=== PATIENT | female | born 1950 | race Caucasian/White ===

== ENCOUNTER 2024-03-14 15:19 | Outpatient (REF) | payer MEDICARE, MEDICAID, SELFPAY | END 2024-03-14 15:20 | disposition home or self-care (01) | LOC: CF 15:19 | DX: Z13.89 Encounter for screening for other disorder (principal) ==

== ENCOUNTER 2024-04-02 13:23 | Outpatient (AMB) | payer MEDICARE, MEDICAID, SELFPAY ==
[2024-04-02 13:30] VITALS: BP 122/68; PULSE 70; O2SAT 98; BMI 24.2
--- NOTE | 2024-04-02 13:30 | MHC.OFFVIS ---
Vital Signs 04/02/24 13:30 Height 5 ft 6 in Weight 149 lb 14.629 oz BMI 24.2 BP 122/68 Blood Pressure Location Lt brachial Position Sitting Pulse 70 Pulse Source Pulse Oximeter Pulse Oximetry (%) 98 Oxygen Delivery Method Room Air Intake Visit Reasons: Abnormal CT scan Ball Rolling Machine Operator Required: No Application Helper: Application Helper offered & declined Accompanied by: Self / Same As Patient Allergies No Known Allergies Allergy (Verified 04/02/24 13:35) Medication List - Last Reconciled 04/02/24 by Kassidy Saldivar LPN duloxetine (Cymbalta) 60 mg PO DAILY meloxicam 15 mg PO DAILY HPI Comments Details: The patient is here for a pulmonary evaluation. The patient is a 73 year woman presenting with a normal CT scan of the chest. Apparently for the last year she has been noticing increasing shortness of breath. Going up a flight of stairs or going up an incline. She is an avid walker and sometimes she goes hiking. She has been noticing that her level exercise has been less. She also developed a cough which is nonproductive in nature. Because of the ongoing symptoms in because the patient's mother and brother both had lung cancer she request a chest x-ray. Her x-ray was abnormal with some reticular changes and some ground-glass opacities. Therefore the recommendation was to get a repeat x-ray in 3 months. I which time the patient did go to [facility] for vacation and she started developing worsening shortness of breath then. Therefore when she got back from her trip she ended up getting the x-ray demonstrating still the persistent changes and therefore the patient underwent a CT of the chest with IV contrast. I did personally review the CAT scan with her. The patient does have peripheral base reticular changes bilaterally but left more than right. In the lingula there is some areas of ground-glass opacities and ill-defined fluffy opacity that area. For the most part though is primarily reticular primarily in the bases. The question of UIP brought was brought up by the radiologist. The degree is [id number]. During the visit we did go for a walking oximetry the patient maintain a pulse ox of 95% with activity and the heart rate was also stable. She does have episodes of palpitations. And she will be seen a carpenter prototype. In the meantime she does have an elevated daytime drowsiness score and she did have a sleep study and she was found to have severe sleep apnea. She did recently start CPAP therapy. As far as exposures the patient does have some minimal exposure to different homes and houses and she has been exposed to mold. Denies any smoking although secondhand smoke may have played a role some point in her life. Denies any exposure to any inorganic dust or fumes or toxins otherwise. As far as any relevant issues she has been told about having arthritis and she also has Raynaud's. But no significant connective tissue disease in the family. Denies any rashes. Will go ahead and request blood work to see if there is any etiologies that could explain her underlying interstitial lung disease. No need for considering biopsy at this time. Her PFTs were done which we did review which demonstrated decreased FEV1 to FVC ratio of 72% but otherwise her lung volumes and diffusing capacity were normal. Will plan to repeat the spirometry during the next visit. Hold off on any therapy at this time. If there is any progression of disease will consider Ofev. [facility] Medical History (Updated 04/02/24 @ 22:42 by John Murphy MD) ARYAN on CPAP ILD (interstitial lung disease) Social History (Updated 04/02/24 @ 13:39 by Kassidy Saldivar LPN) Years Smoked: Very occasional smoker. 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) Neuro Reports no additional complaints Royce/Lymph Reports no additional complaints Aller/Immun Denies wheezing Physical Exam Vital Signs: Last Vital Signs Pulse 70 04/02/24 13:30 BP 122/68 04/02/24 13:30 Pulse Ox 98 04/02/24 13:30 Oxygen Delivery Method Room Air 04/02/24 13:30 BMI result Body Mass Index 24.2 Const General: comfortable HEENT Head: Yes normocephalic Neck Neck: Yes supple Chest Chest palpation & inspection: normal inspection of the chest Resp Effort & Inspection: normal respiratory effort Auscultation: rales (end inspiration) and diminished lung sounds Cardio Heart sounds: S1 normal heart sound present and S2 normal heart sound present GI Palpation (GI): Soft to palpation Skin General skin exam: no rashes or lesions noted Extrem General: Yes no clubbing, cyanosis or edema Results Reviewed Results Reviewed: persnonally reviewed CT chest with bibasilar reticular changes and mild honeycombing Assessment & Plan Assessment & Plan (1) ILD (interstitial lung disease): Code(s): J84.9 - Interstitial pulmonary disease, unspecified Category: Medical (2) ARYAN on CPAP: Code(s): G47.33 - Obstructive sleep apnea (adult) (pediatric) Category: Medical Plan The findings of the CT chest are demonstrating early process of ILD. The distribution and the reticular nature is suspicious for Usual interstitial pneumonia. We will try to identify any precipitating conditions: No medication of concern. No pneumoconiosis. No radiation. Need to assess for CTDs. Need to assess to this ILD is progressive. Holding off on meds at this time. Does have a compression fracture so steroids maybe difficult to tolerate, but,no significant pneumonitis (?lingula) noted. 6MWT was reassuring. REC: Bloodwork repeat spirometry continue APAP should sleep with HOB elevated Will request barium swallow F/U 6-8 weeks Orders: Orders Venous Blood Gas Today J84.9 - Interstitial pulmonary disease, unspecified MECHELLE Reflex Titer and Pattern Today J84.9 - Interstitial pulmonary disease, unspecified Cyclic Citrullinated Peptide Today J84.9 - Interstitial pulmonary disease, unspecified Complete Blood Count Auto Diff Today J84.9 - Interstitial pulmonary disease, unspecified Anti DNA DS Antibody Today J84.9 - Interstitial pulmonary disease, unspecified ANCA Vasculitides Today J84.9 - Interstitial pulmonary disease, unspecified Erythrocyte Sedimentation Rate Today J84.9 - Interstitial pulmonary disease, unspecified Hypersensitive Pneumonitis Prf Today J84.9 - Interstitial pulmonary disease, unspecified, R91.8 - Other nonspecific abnormal finding of lung field Scleroderma 70 Antibody Today J84.9 - Interstitial pulmonary disease, unspecified Sjogren's Antibodies Today J84.9 - Interstitial pulmonary disease, unspecified FL barium swallow Today J84.9 - Interstitial pulmonary disease, unspecified, K21.9 - Gastro-esophageal reflux disease without esophagitis Coding Level of Care Code New Pt Level 5 (11858) Diagnoses ILD (interstitial lung disease) J84.9 ARYAN on CPAP G47.33 Time Spent (min) 60
== END 2024-04-02 14:21 | disposition home or self-care (01) ==
PROVIDERS: PCP Family Medicine; Referring Provider Family Medicine; Visit Provider Hospitalist
DX: J84.9 Interstitial pulmonary disease, unspecified (principal); G47.33 Obstructive sleep apnea (adult) (pediatric)
CPT/HCPCS: 99205

== ENCOUNTER 2024-04-02 14:22 | Outpatient (REF) | payer MEDICARE, SELFPAY ==
[2024-04-02 14:49] LABS: MANUAL DIFF FLAG NO
[2024-04-02 15:06] LABS: Basophils Absolute Auto 0.1 X10*3/uL (0.0-0.2); Basophils Percent Auto 0.9 % (0-2); Eosinophils Absolute Auto 0.3 X10*3/uL (0.0-0.4); Eosinophils Percent Auto 5.6 % (0-4); Hematocrit 40.7 % (37.0-47.0); Hemoglobin 14.2 g/dl (12.0-16.0); Imm Gran Abs Auto 0.02 X10*3/uL (0.00-0.03); Imm Gran Pct Auto 0.4 % (0.0-0.4); Lymphocytes Absolute Auto 1.2 X10*3/uL (1.2-4.9); Lymphocytes Percent Auto 22.7 % (20-40); Mean Corpuscular HGB Conc 34.9 g/dl (31.0-35.0); Mean Corpuscular Hemoglobin 33.2 pg (27.0-33.0); Mean Corpuscular Volume 95.1 fL (80.0-98.0); Mean Platelet Volume 8.9 fL (9.4-12.3); Monocytes Absolute Auto 0.4 X10*3/uL (0.1-1.2); Monocytes Percent Auto 7.7 % (2-11); Neutrophils Absolute Auto 3.4 x10*3/uL (2.0-8.3); Neutrophils Percent Auto 62.7 % (45-73); Platelet Count 239 X10*3/uL (160-400); Red Blood Count 4.28 X10*6/uL (4.20-5.50); Red Cell Distribution Width 11.9 % (11.0-16.0); White Blood Count 5.3 X10*3/uL (4.8-10.8)
[2024-04-02 15:09] LABS: VBG Base Excess 4.3 mmol/L; VBG pCO2 44 mmHg; VBG pH 7.42 (7.32-7.43); VBG pO2 37 mmHg
[2024-04-02 15:10] LABS: VBG HCO3 29 mmol/L (22-26)
[2024-04-02 15:12] LABS: Venous Blood Gas Refer to POC result
[2024-04-02 15:51] LABS: Erythrocyte Sedimentation Rate 9 MM/HR (0-20)
[2024-04-03 18:13] LABS: Anti DNA DS Antibody <1 IU/mL; Antibody to SS-A Antigen <1.0 NEG AI (<1.0 NEG); Antibody to SS-B Antigen <1.0 NEG AI (<1.0 NEG); Myeloperoxidase Antibody <1.0 AI; Proteinase 3 PR3 Antibodies <1.0 AI; Scleroderma 70 Antibody <1.0 NEG AI (<1.0 NEG)
[2024-04-03 19:53] LABS: Cyclic Citrullinated Peptide <16 UNITS
[2024-04-05 11:42] LABS: Anti Nuclear Antibody Screen NEGATIVE (NEGATIVE)
[2024-04-12 12:43] LABS: Asperg fumigatus Precip Abs NEGATIVE (NEGATIVE); Micropoly faeni Abs NEGATIVE (NEGATIVE); Pigeon serum Abs NEGATIVE (NEGATIVE); Saccharo pora viridis Abs NEGATIVE (NEGATIVE); Thermo candidus Abs NEGATIVE (NEGATIVE); Thermoa vulgaris #1 NEGATIVE (NEGATIVE)
== END 2024-04-02 14:23 | disposition home or self-care (01) ==
LOC: HO.LAB 14:22
PROVIDERS: PCP Family Medicine; Visit Provider Hospitalist
DX: J84.9 Interstitial pulmonary disease, unspecified (principal); R91.8 Other nonspecific abnormal finding of lung field; G47.33 Obstructive sleep apnea (adult) (pediatric)
CPT/HCPCS: 36415; 82803; 85025; 85652; 86021; 86038; 86200; 86225; 86235; 86331; 86606; 86609; 99202

== ENCOUNTER 2024-07-02 08:05 | Outpatient (REF) | payer MEDICARE, SELFPAY | END 2024-07-02 08:06 | disposition home or self-care (01) | LOC: HO.XRAY 08:05 | PROVIDERS: PCP Family Medicine; Visit Provider Hospitalist | DX: K21.9 Gastro-esophageal reflux disease without esophagitis (principal); J84.9 Interstitial pulmonary disease, unspecified | CPT/HCPCS: 74220 ==

== ENCOUNTER → 2024-07-02 08:08 | Outpatient (BNV) | payer MEDICARE, SELFPAY | PROVIDERS: PCP Family Medicine; Visit Provider Radiology Diagnostic Radiology | DX: K21.9 Gastro-esophageal reflux disease without esophagitis (principal) | CPT/HCPCS: 74240 ==

== ENCOUNTER 2024-07-06 12:51 | Outpatient (AMB) | payer MEDICARE, MEDICAID, SELFPAY ==
[2024-07-06 13:09] VITALS: BP 120/82; PULSE 57; O2SAT 99; BMI 24.4
--- NOTE | 2024-07-06 13:09 | A.OFFVIS_ITS ---
Vital Signs 3 07/06/24 13:09 Height 5 ft 6 in Weight 151 lb 0.266 oz BMI 24.4 BP 120/82 Blood Pressure Location Rt brachial Position Sitting Pulse 57 Pulse Source Pulse Oximeter Pulse Oximetry (%) 99 Oxygen Delivery Method Room Air Intake Visit Reasons: ILD/Same Day Aleksander Allergies No Known Allergies Allergy (Verified 07/06/24 13:12) HPI Comments Details: The patient is a 74 year woman presenting with a normal CT scan of the chest. Apparently for the last year she has been noticing increasing shortness of breath. Going up a flight of stairs or going up an incline. She is an avid walker and sometimes she goes hiking. She has been noticing that her level exercise has been less. She also developed a cough which is nonproductive in nature. Because of the ongoing symptoms in because the patient's mother and brother both had lung cancer she request a chest x-ray. Her x-ray was abnormal with some reticular changes and some ground-glass opacities. Therefore the recommendation was to get a repeat x-ray in 3 months. I which time the patient did go to [facility] for vacation and she started developing worsening shortness of breath then. Therefore when she got back from her trip she ended up getting the x-ray demonstrating still the persistent changes and therefore the patient underwent a CT of the chest with IV contrast. I did personally review the CAT scan with her. The patient does have peripheral base reticular changes bilaterally but left more than right. In the lingula there is some areas of ground-glass opacities and ill-defined fluffy opacity that area. For the most part though is primarily reticular primarily in the bases. The question of UIP brought was brought up by the radiologist. The degree is [id number]. During the visit we did go for a walking oximetry the patient maintain a pulse ox of 95% with activity and the heart rate was also stable. She does have episodes of palpitations. And she will be seen a sleeve presser operator. In the meantime she does have an elevated daytime drowsiness score and she did have a sleep study and she was found to have severe sleep apnea. She did recently start CPAP therapy. As far as exposures the patient does have some minimal exposure to different homes and houses and she has been exposed to mold. Denies any smoking although secondhand smoke may have played a role some point in her life. Denies any exposure to any inorganic dust or fumes or toxins otherwise. As far as any relevant issues she has been told about having arthritis and she also has Raynaud's. But no significant connective tissue disease in the family. Denies any rashes. Will go ahead and request blood work to see if there is any etiologies that could explain her underlying interstitial lung disease. No need for considering biopsy at this time. Her PFTs were done which we did review which demonstrated decreased FEV1 to FVC ratio of 72% but otherwise her lung volumes and diffusing capacity were normal. Will plan to repeat the spirometry during the next visit. Hold off on any therapy at this time. If there is any progression of disease will consider Ofev. 07/06/2024 the patient is here for pulmonary follow-up visit. Overall she is doing okay. She still has episodes of tachycardia palpitations when she stands up. Otherwise denies any worsening shortness of breath or cough. She did undergo a barium swallow demonstrating no evidence of hiatal hernia reflux. She also did undergo blood work including connective tissue disease workup and hypersensitivity panel which were all negative. All reassuring. We again reviewed her CT scan from 09/10/2023 and also again from 02/10/2024 demonstrating the peripheral nature of the reticular changes and honeycombing. We did talk about the differential idiopathic parenchymal lung diseases. Her last PFTs from the summer and we had her repeating spirometry today. It appears that her FVC and FEV1 are both normal although her FEV1 to FVC ratio 70%. She still has some symptoms of dyspnea when she exercises. [id number] severity and also some shortness of breath when she rises. Therefore, have her start Breo once a day. She will rinse her mouth well. The patient does have a appointment in [place] scheduled to have this evaluated as well. I did recommend she can push her appointment to the summer so we can see if there is indeed any evidence of progression. For now though is reassuring that we see that her disease state is stable. [facility] Medical History (Updated 07/09/24 @ 13:22 by John Murphy MD) COPD (chronic obstructive pulmonary disease) Dyspnea ARYAN on CPAP ILD (interstitial lung disease) Social History Years Smoked: Very occasional smoker. 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) Neuro Reports no additional complaints Royce/Lymph Reports no additional complaints Aller/Immun Denies wheezing Physical Exam Vital Signs: Last Vital Signs Pulse 57 07/06/24 13:09 BP 120/82 07/06/24 13:09 Pulse Ox 99 07/06/24 13:09 Oxygen Delivery Method Room Air 07/06/24 13:09 BMI result Body Mass Index 24.4 Const General: comfortable HEENT Head: Yes normocephalic Neck Neck: Yes supple Chest Chest palpation & inspection: normal inspection of the chest Resp Effort & Inspection: normal respiratory effort Auscultation: rales (end inspiration) and diminished lung sounds Cardio Heart sounds: S1 normal heart sound present and S2 normal heart sound present GI Palpation (GI): Soft to palpation Skin General skin exam: no rashes or lesions noted Extrem General: Yes no clubbing, cyanosis or edema Office Procedures Flu Questionnaire Does the patient have a severe egg allergy?: No Does the patient have severe life threatening allergies?: No Does the patient have a fever or illness today?: No Has the patient ever had Guillain-Lansing Syndrome?: No Has the patient ever had any past reaction to a flu shot?: No Immunizations Fluarix Triv [id number] (PF) 45 mcg (15 mcg x 3)/0.5 mL IM syringe Performing Provider: John Murphy MD Performing Location: [facility] Administered by: Kassidy Saldivar LPN on 07/06/24 14:08 2 Dose Route Admin Location Dispensed Lot Number Expiration Date NDC Hat Forming Machine Operator 0.5 mL IM Left Deltoid 0.5 mL [id number] 11/19/24 [id number] [employer] 2 VIS Given Date VIS Provided VIS Publication Date 07/06/24 Single Vaccine 20 Eligibility Eligibility Date Funding Source Not [facility] Eligible 07/06/24 Private Results Reviewed Results Reviewed: Assessment & Plan Assessment & Plan (1) ILD (interstitial lung disease): Code(s): J84.9 - Interstitial pulmonary disease, unspecified Category: Medical (2) ARYAN on CPAP: Code(s): G47.33 - Obstructive sleep apnea (adult) (pediatric) Category: Medical (3) Dyspnea: Code(s): R06.00 - Dyspnea, unspecified Category: Medical Qualifiers: Dyspnea type: dyspnea on exertion Qualified Code(s): R06.09 - Other forms of dyspnea (4) COPD (chronic obstructive pulmonary disease): Comment: based on pre bronchodilator numbers. Could potentially be reversible. Although, not responsive to bronchodilators on her initial PFTs from 11/2023 Code(s): J44.9 - Chronic obstructive pulmonary disease, unspecified Category: Medical Qualifiers: COPD type: chronic bronchitis Chronic bronchitis type: simple Q ualified Code(s): J41.0 - Simple chronic bronchitis Plan The findings of the CT chest are demonstrating early process of ILD. The distribution and the reticular nature is suspicious for Usual interstitial pneumonia. We will try to identify any precipitating conditions: No medication of concern. No pneumoconiosis. No radiation. No evidence of CTDs. Need to continue to assess if the ILD is progressive. Holding off on meds at this time. Does have a compression fracture so steroids maybe difficult to tolerate REC: Start Breo daily continue APAP should sleep with HOB elevated Will request barium swallow-normal Will have a second opinion in [place] soon. I encouraged her to postpond appt till October/November to assess her response to inhaler therapy and to be able to get a formal PFT and imaging study then. F/U 6-8 months Orders: Orders 2 Influenza [id number] Immunization 07/06/24 Z23 - Encounter for immunization Medications: New 2 fluticasone furoate-vilanterol 100-25 mcg/dose (Breo Ellipta) 1 inh inhalation DAILY 30 days 60 ea 11RF Coding Level of Care Code Est Pt Level 5 (69593) Diagnoses ILD (interstitial lung disease) J84.9 ARYAN on CPAP G47.33 Dyspnea on exertion R06.09 Dyspnea type: dyspnea on exertion Simple chronic bronchitis J41.0 COPD type: chronic bronchitis Chronic bronchitis type: simple Time Spent (min) 60
--- OUTSIDE RECORDS SUMMARY | 2024-07-06 13:14 | XMS_ITS | Encounter Summary ---
Author Organization [employer] Address [address] [facility] [address] [place] [address] Care Team Providers Care Grades 9 Thru 12 Visiting Teacher Name Role Phone Tracey Lovett DO Primary Care Provider [phone] Olga Guillen Unavailable Unavailable Encounter Details Date Type Department Care Team (Late st Contact Info) Description 04/07/[address] [facility] MEDICAL [address] [place] [address] Provider, MD Maria Fernanda Social History Tobacco Use Types Packs/Day Years Used Date Smoking Tobacco: Former Cigarettes 0.3 45 1 967 - 2011 Passive Smoke Exposure: Past Smokeless Tobacco: Never Alcohol Use Standard Drinks/Week Comments Yes 0 (1 standard drink = 0.6 oz pur e alcohol) Alcohol Answer Date Recorded How often do you have a drink containing alcohol ? 0 05/27/2023 How many drinks containing a lcohol do you have on a typical day when you are drinking? 0 05/27/2023 How often do you have six or more drinks on one occasion? 0 05/27/2023 Depression Answer Date Recorded Patient Health Questionnaire-9 Score 12 08/02/2023 Patient Health Questionnaire-9 Score 12 08/02/2023 Last PHQ-9: Questionnaire Data Not on file 0 08/02/2023 Housing Stability Answer Date Recorded What is your housing situation today? I have pricillakendra agustin 05/27/[address] you li ve. Do you have problems with any of the following? None of the above 05/27/2023 Food Insecurity Answer Date Recorded Within the past 12 months, y ou worried that your food would run out before you got money to buy more: Never True 05/27/2023 Within the past 12 months,th e food you bought just didn't last and you didn't have enough money to get more: Never True 09/2023 Transportation Answer Date Recorded In the past 12 months, has l ack of transportation kept you from medical appts, meetings, work or from getting things needed for daily living? No 05/27/2023 Intimate Partner Violence Answer Date R ecorded Within the last year, have y ou been afraid of your partner or ex-partner? 2 05/27/2023 Within the last year, have y ou been humiliated or emotionally abused in other ways by your partner or ex-partner? 2 Within the last year, have y ou been kicked, hit, slapped, or otherwise physically hurt by your partner or ex-partner? 2 05/27/2023 Within the last year, have y ou been raped or forced to have any kind of sexual activity by your partner or ex-partner? 2 05/27/2023 Utilities Answer Date Recorded In the past 12 months, has t he electric, gas, oil or water company threatened to shut off services in your home? No 05/27/2023 Depression Answer Date Recorded Patient Health Questionnaire-2 Score 2 09/30/2023 Internet Access Answer Date Recorded Internet Access Q1 Yes 03/06/2024 Internet Access Q2 I do not want or need it 02/20 Education Answer Date Recorded What is the highest level of school you have completed or the highest degree you have received? Bachelor's degree (e.g., BA, AB, BS) 03/06/2024 Comments No Sex and Gender Information Value Date Recorded Sex Assigned at Female 07/07/2022 8:02 AM EST Legal Sex Female 5:35 PM EDT Gender Identity Female 07/07/2022 8:02 AM EST Sexual Orientation Straight 07/07/2022 8: 02 AM EST Occupation Industry Job Start Date Job End Date Retired Not on file Not on file Not on file documented as of this encounter Plan of Treatment Upcoming Encounters Date Type Department Care Team (Late st Contact Info) Description 12/06/2024 11:00 AM EDT Office Visit [facility] [address] [place] [address] Avani Martinez documented as of this encounter Procedures Procedure Name Priority Date/Time Associated Diagnosis Comments SJOGREN'S ANTIBODIES (SS-A,SS-B) Routine 04/02/2024 3:15 PM EST CYCLIC CITRULLINATED PEPTIDE (CCP) AB (IGG) Routine 04/02/2024 3:15 PM EST documented in this encounter Results * Cyclic Citrullinated Peptide (CCP) Antibody (IgG) (04/02/2024 3:15 PM EST) Blood Venous blood specimen / Unknown us Historical Provider MD LAB BLOOD ORDERABLES María l Result * Sjogren's Antibodies (SS-A,SS-B) (04/02/2024 3:15 PM EST) us Historical Provider MD LAB BLOOD ORDERABLES María l Result documented in this encounter Visit Diagnoses Not on filedocumented in this encounter Additional Health Concerns Assessment Noted Time PHQ-9 Depression Total Score: 12 024 10:00 AM EDT documented as of this encounter Care Teams Grades 9 Thru 12 Visiting Teacher Relationship Specialty Start Date End Date Tracey Lovett DO [address] [place] [id number] PCP - General Family Medicine 02/16/24 Olga Guillen Health Navigator 02/24/24 documented as of this encounter
--- OUTSIDE RECORDS SUMMARY | 2024-07-06 13:14 | XMS_ITS | Encounter Summary ---
Author Organization [employer] Address [address] [facility] 7t [place] [address] Care Team Providers Care Monument Mason Name Role Phone Tracey Lovett DO Primary Care Provider [phone] Olga Guillen Unavailable Unavailable Encounter Details Date Type Department Care Team (Late st Contact Info) Description 07/02/2024 Orders Only [facility] [address] [place] [address] Tracey Lovett DO [address] [place] [address] Social History Tobacco Use Types Packs/Day Years [...] is your housing situation today? I have pricilla agustin 05/27/[address] you [...] Description 12/06/2024 11:00 AM EDT Office Visit [facility] DENTAL [address] [place] [address] Avani Martinez documented as of this encounter Procedures Procedure Name Priority Date/Time Associated Diagnosis Comments FL ESOPHAGUS BARIUM SWALLOW Routine 07/02/2024 2:22 PM EST documented in this encounter Results * FL Esophagus Barium Swallow (07/02/2024 2:22 PM EST) Anatomical Region Laterality Modality Head, Neck Radiographic Nan ging Tracey Lovett DO IMG FLUOROSCOPY PROCEDURES Fin al Result documented in this encounter Visit Diagnoses Not on filedocumented in this encounter Additional Health Concerns Assessment Noted Time PHQ-9 Depression Total Score: 12 024 10:00 AM EDT documented as of this encounter Care Teams Monument Mason Relationship Specialty Start Date End Date Tracey Lovett DO [address] [place] [address] PCP - General Family Medicine 02/16/24 Olga Guillen Health Navigator 02/24/24 documented as of this encounter
--- OUTSIDE RECORDS SUMMARY | 2024-07-06 13:14 | XMS_ITS | Encounter Summary ---
Author Organization [employer] Address [address] [place] [address] Care Team Providers Care Senior Front End Developer Name Role Phone Yuly Norwood Unassigned Primary Care Provider Suzan Atkins MD Primary Care Provider [phone] Tamia Reid Primary Care Provider [phone] Tracey Lovett DO Primary Care Provider Olga Guillen Unavailable Unavailable Encounter Details Date Type Department Care Team (Latest Contact Info) Description 08/31/2021 Abstract [facility] Dental, Provider, DDS Social History Tobacco Use Types Packs/Day Years Used Date Smoking Tobacco: Never Assessed Comments Unknown Sex and Gender Information Value Date Recorded Sex Assigned at Female 07/07/2022 8:02 AM EST Legal Sex Female 5:35 PM EDT Gender Identity Female 07/07/2022 8:02 AM EST Sexual Orientation Straight 07/07/2022 8: 02 AM EST documented as of this encounter Plan of Treatment Upcoming Encounters Date Type Department Care Team (Late st Contact Info) Description 12/06/2024 11:00 AM EDT Office Visit [facility] D[facility]AL [address] [place] [address] Avani Martinez documented as of this encounter Visit Diagnoses Not on filedocumented in this encounter Care Teams Senior Front End Developer Relationship Specialty Start Date End Date PcpYuly Unassigned PCP - General Family Medicine 09/20/22 01/18/23 Suzan Block MD [address] [place] [address] PCP - General Internal Medicine 01/19/23 11/13/23 Tamia Reid FNP [address] [place] [address] PCP - General Family Medicine 11/14/23 02/15/24 Tracey Lovett DO [address] [place] [address] PCP - General Family Medicine 02/16/24 Olga Guillen Health Navigator 02/24/24 documented as of this encounter
--- OUTSIDE RECORDS SUMMARY | 2024-07-06 13:14 | XMS_ITS | Encounter Summary ---
Author Organization [employer] Address [address] [facility] 7t [place] [address] Care Team Providers Care Bath Steward Name Role Phone Suzan Block MD Primary Care Provider [phone] Tamia Reid Primary Care Provider [phone] Tracey Lovett DO Primary Care Provider [phone] Olga Guillen Unavailable Unavailable Encounter Details Date Type Department Care Team (Late st Contact Info) Description 06/20/2023 Orders Only [facility] [address] [place] [address] Dilma Szymanski MD [address] [place] [address] Palpitations Social History Tobacco Use Types Packs/Day Years Used Date Smoking Tobacco: Former Cigarettes Passive Smoke Exposure: Past Smokeless Tobacco: Never [...] more drinks on one occasion? 0 05/27/2023 Housing Stability Answer Date Recorded What is [...] Date Recorded Patient Health Questionnaire-2 Score 2 05/27/2023 Comments Unknown Sex and Gender Information Value [...] Description 12/06/2024 11:00 AM EDT Office Visit [facility] DENTAL [address] [place] [address] Avani Martinez documented as of this encounter Procedures Procedure Name Priority Date/Time Associated Diagnosis Comments TRANSTHORACIC ECHO (TTE) COMPLETE Routine 024 Palpitations documented in this encounter Results * Transthoracic Echo (TTE) Complete (06/20/2023) Dilma Szymanski MD CV ECHO PROCEDURES Final Result documented in this encounter Visit Diagnoses Diagnosis Palpitations documented in this encounter Care Teams Bath Steward Relationship Specialty Start Date End Date Suzan Block MD [address] [place] [address] PCP - General Internal Medicine 01/19/23 11/13/23 Tamia Reid FNP [address] [place] [address] PCP - General Family Medicine 11/14/23 02/15/24 Tracey Lovett DO [address] [place] [address] PCP - General Family Medicine 02/16/24 Olga Guillen Health Navigator 02/24/24 documented as of this encounter
--- OUTSIDE RECORDS SUMMARY | 2024-07-06 13:14 | XMS_ITS | Encounter Summary ---
Author Organization [employer] Address 75 [facility] 7t [place] [address] Care Team Providers Care Agricultural Equipment Mechanic Name Role Phone Suzan Block MD Primary Care Provider [phone] Tamia Reid Primary Care Provider [phone] Tracey Lovett DO Primary Care Provider [phone] Olga Guillen Unavailable Unavailable Encounter Details Date Type Department Care Team (Late st Contact Info) Description 08/25/2023 Orders Only [facility] [address] [place] [address] Tamia Reid FNP [address] [place] [address] Snoring Social History Tobacco Use Types Packs/Day Years [...] Answer Date Recorded Patient Health Questionnaire-2 Score 1 08/02/2023 Comments Unknown Sex and Gender Information Value [...] Description 12/06/2024 11:00 AM EDT Office Visit [place] [facility] DENTAL [address] [place] [address] Avani Martinez documented as of this encounter Procedures Procedure Name Priority Date/Time Associated Diagnosis Comments AMB REFERRAL TO SLEEP MEDICINE Routine 08/18/2023 Snoring documented in this encounter Results * Referral to Sleep Medicine (08/18/2023) Tamia BOYD OUTPATIENT REFERRAL ORDERABLES F inal Result documented in this encounter Visit Diagnoses Diagnosis Snoring Other dyspnea and respiratory abnormality documented in this encounter Additional Health Concerns Assessment Noted Time PHQ-9 Depression Total Score: 12 024 10:00 AM EDT documented as of this encounter Care Teams Agricultural Equipment Mechanic Relationship Specialty Start Date End Date Suzan Block MD [address] [place] [address] PCP - General Internal Medicine 01/19/23 11/13/23 Tamia Reid FNP [address] [place] [address] PCP - General Family Medicine 11/14/23 02/15/24 rTacey Lovett DO [address] [place] [address] PCP - General Family Medicine 02/16/24 Olga Guillen Health Navigator 02/24/24 documented as of this encounter
--- OUTSIDE RECORDS SUMMARY | 2024-07-06 13:14 | XMS_ITS | Encounter Summary ---
Author Organization [employer] Address [address] [facility] 7t [place] [address] Care Team Providers Care Textile Worker Name Role Phone Tamia Reid OLIVER Primary Care Provider [phone] Tracey Lovett DO Primary Care Provider [phone] Olga Guillen Unavailable Unavailable Encounter Details Date Type Department Care Team (Late st Contact Info) Description 01/10/2024 Orders Only [facility] MED[facility] [address] [place] [address] Janina Catherine FNP Social History Tobacco Use Types Packs/Day Years Used Date Smoking Tobacco: Former Cigarettes 0.3 45 1 967 - 2012 Passive Smoke Exposure: Past Smokeless Tobacco: Never [...] the past 12 months, has t he [employer], gas, oil or water company threatened to shut off services in your home? No 05/27/2023 Depression Answer Date Recorded Patient Health Questionnaire-2 Score 2 09/30/2023 Comments Unknown Sex and Gender Information Value [...] Description 12/06/2024 11:00 AM EDT Office Visit [place] [facility] D[facility] [address] [place] [address] Avani Martinez documented as of this encounter Visit Diagnoses Not on filedocumented in this encounter Additional Health Concerns Assessment Noted Time PHQ-9 Depression Total Score: 12 024 10:00 AM EDT documented as of this encounter Care Teams Textile Worker Relationship Specialty Start Date End Date Tamia Reid FNP [address] [place] [address] PCP - General Family Medicine 11/14/23 02/15/24 Tracey Lovett DO [address] [place] [address] PCP - General Family Medicine 02/16/24 Olga Guillen Health Navigator 02/24/24 documented as of this encounter
--- OUTSIDE RECORDS SUMMARY | 2024-07-06 13:14 | XMS_ITS | Encounter Summary ---
Author Organization [employer] Address [address] [place] [address] Care Team Providers Care Supervisor Sanding Name Role Phone Yuly Norwood Unassigned Primary Care Provider Suzan Atkins MD Primary Care Provider [phone] Tamia Reid Primary Care Provider [phone] Tracey Lovett DO Primary Care Provider [phone] Olga Guillen Unavailable Unavailable Encounter Details Date Type Department Care Team (Latest Contact Info) Description 02/25/2021 Abstract [facility] Dental, Provider, DDS Social [...] Description 12/06/2024 11:00 AM EDT Office Visit [facility] [address] [place] [address] Avani Martinez documented as of this encounter Visit Diagnoses Not on filedocumented in this encounter Care Teams Supervisor Sanding Relationship Specialty Start Date End Date PcpYuly Unassigned PCP - General Family Medicine 09/20/22 01/18/23 Suzan Block MD [address] [place] [address] PCP - General Internal Medicine 01/19/23 11/13/23 Tamia Reid FNP [address] [place] [address] PCP - General Family Medicine 11/14/23 02/15/24 Tracey Lovett DO [address] [place] [address] PCP - General Family Medicine 02/16/24 Olga Guillen Health Navigator 02/24/24 documented as of this encounter
--- OUTSIDE RECORDS SUMMARY | 2024-07-06 13:14 | XMS_ITS | Encounter Summary ---
Author Organization [email or web address] Address [address] [place] [address] 7t [place] [address] Care Team Providers Care Top Installer Name Role Phone Tracey Lovett DO Primary Care Provider [phone] Olga Guillen Unavailable Unavailable Reason for Visit * Reason Comments Routine Cleaning Dental Exam Encounter Details Date Type Department Care Team (Latest Contact Info) Description 06/06/2024 9:20 AM EST Office Visit [facility] DENTAL [address] [place] [address] Avani Martinez Accretisrikanth on teeth (Primary Dx); Dental calculus; Encounter for dental examination; Stage 2 grade A localized periodontitis per AAP/EFP 2017 classification; Stage 3 grade B generalized periodontitis per AAP/EFP 2017 classification Social History Tobacco Use Types Packs/Day Years [...] on file documented as of this encounter Progress Notes * Avani Martinez - 06/06/2024 9:20 AM EST Progress Notes Avani Martinez (Hygienist) Dental Supervisor Lamp Shades Procedure Date: 10/06/2023 Chief Complaint Patient presents with Dental Exam Routine Cleaning Pt states she was eating almonds and tooth on UL fractured. Pt reports no pain or sensitivity. Pt states implant on UR fell out and she went to the oral surgeon office and was told she needed a new implant, bone graft. Pt reports the oral surgeon that placed the implant is no longer there. There were no vitals taken for this visit. Prerinse with alcohol free listerine Health Status: has changed in the following manner Pt diagnosed with ARYAN, pt states she has CPAP machine. Pt reports she has appt with color specialist in [place] in July. Pt states she has been having shortness of breath. OCS wnl Perio case Stage II A localized, Stage III A localized. Oral hygienefair /good Moderate calc wellington anteriors Probings: 4 mm or less, localized 5-6mm UL premolar and #30M, #5M=6mm Xrays checkedxray ck by Dr RIZZO Decay no decay Perio dx from xrayslocalized vertical bone loss and generalized horizontal bone loss Degree of scalinglight scaling with hand instruments and cavitron OHIflossing instruction strongly rec pt use waterpik. Exam by Cindi Tooth #13 fractured at gumline with only small portion of buccal wall remaining. Advised pt that tooth needs to be extracted as well as #12 due to bone loss. Pt states she does not have dental insurance and does not want to proceed with any tx at this time. Oral sx/Perio hx: Referrals oral surgeon for evaluation of implants #3,14, extraction of #3 implant and #12,13 (pt had implants #3,[address] Dillon on 04/24/2015) -Pt was referred by Dr Gaffney to [facility] for evaluation of implants #3,14 on 08/18/2020 -Pt was referred by Dr Palafox to operator prefinish ([facility]) on 10/13/2021 for eval of 12,13 -Pt was referred to operator prefinish ([facility]) by Dr Rai on 09/01/2021 for evaluation of implants #3,14. -Pt was treated at [facility] on 05/03/2022 for SRP right side. No mention of implant health in correspondence letter from Dr Noyola. -Pt had re eval of periodontal condition on 08/11/2022, three month perio maintenance was recommended. No mention of implant health in correspondence letter. Hygiene Recommendations:continue current regimen, floss subging Hygiene recall time3 month recall NV jacquelyny documented in this encounter Plan of Treatment Upcoming Encounters Date Type Department Care Team (Late st Contact Info) Description 12/06/2024 11:00 AM EDT Office Visit [place] [facility] DENTAL [address] [place] [address] Avani Martinez documented as of this encounter Procedures Procedure Name Priority Date/Time Associated Diagnosis Comments Full PROPHYLAXIS - ADULT Routine 06/06/2024 9:20 AM EST PERIODIC ORAL EVALUATION - ESTABLISHED PATIENT Routine 06/06/2024 9:20 AM EST 3 EXTRACTION Routine 06/06/2024 12:00 AM EST documented in this encounter Visit Diagnoses Diagnosis Accretions on teeth- Primary Dental calculus Accretions on teeth Encounter for dental examination Stage 2 grade A localized periodontitis per AAP/EFP 2017 classification Stage 3 grade B generalized periodontitis per AAP/EFP 2017 classification documented in this encounter Additional Health Concerns Assessment Noted Time PHQ-9 Depression Total Score: 12 024 10:00 AM EDT documented as of this encounter Care Teams Top Installer Relationship Specialty Start Date End Date Tracey Lovett DO [address] [place] [address] PCP - General Family Medicine 02/16/24 Olga Guillen Health Navigator 02/24/24 documented as of this encounter
--- OUTSIDE RECORDS SUMMARY | 2024-07-06 13:14 | XMS_ITS | Encounter Summary ---
Author Organization [employer] Address [address] [place] [address] Care Team Providers Care Sap Bpc Developer Name Role Phone Yuly Norwood Unassigned Primary Care Provider Suzan Atkins MD Primary Care Provider [phone] Tamia Reid Primary Care Provider [phone] Tracey Lovett DO Primary Care Provider [phone] Olga Guillen Unavailable Unavailable Encounter Details Date Type Department Care Team (Latest Contact Info) Description 12/19/2018 Abstract [facility] Dental, Provider, DDS Social [...] Description 12/06/2024 11:00 AM EDT Office Visit [place] [facility] DENTAL [address] [place] [address] Avani Martinez documented as of this encounter Visit Diagnoses Not on filedocumented in this encounter Care Teams Sap Bpc Developer Relationship Specialty Start Date End Date PcpYuly Unassigned PCP - General Family Medicine 09/20/22 01/18/23 Suzan Block MD [address] [place] [address] PCP - General Internal Medicine 01/19/23 11/13/23 Tamia Reid FNP [address] [place] [address] PCP - General Family Medicine 11/14/23 02/15/24 Tracey Lovett DO [address] [place] [address] PCP - General Family Medicine 02/16/24 Olga Guillen Health Navigator 02/24/24 documented as of this encounter
--- OUTSIDE RECORDS SUMMARY | 2024-07-06 13:14 | XMS_ITS | Clinical Summary ---
Author Organization [employer] Address [address] [place] [address] [address] [place] [address] Care Team Providers Care Sde Name Role Phone Tracey Lovett DO Primary Care Provider [phone] Olga Guillen Unavailable Unavailable Allergies Active Allergy Reactions Criticality Noted Date Comments Erythromycin 07/07/2022 Other reaction(s): vag irritation Honey Bee Venom 07/07/2022 Other reaction(s): dizzy,nausea, Medications * This document contains information received from the source organization and may not represent a complete record from that organization. CALCIUM & MAGNESIUM CARBONATES PO Calcium & Magnesium Carbonates Active cholecalciferol (Vitamin D-3) 25 MCG (1000 UT) capsule 1 tablet in the morning. Active B Complex Vitamins (vitamin B complex) tablet Orally Acti ve alpha tocopherol (Vitamin E) 400 units capsule Take 400 Units by mouth in the morning. Active glucosamine-keny droitin 500-400 MG tablet Take 1 tablet by mouth in the morning. Active Emollient (COLLAGEN EX) Apply 1 Dose topically in the morning. Active meloxicam (Mobic) 15 MG tabletIndication s:Cervicogenic headache TAKE 1 TABLET BY MOUTH EVERY DAY IN THE MORNING 30 tablet 11 4 Active DULoxetine (Cymbalta) [address] capsuleIndicatio ns:Major depressive disorder, single episode, unspecified TAKE 1 CAPSULE BY MOUTH EVERY DAY 90 capsule 2 4 Active buPROPion SR (Wellbutrin SR) 150 MG 12 hr tablet TAKE 1 TABLET BY MOUTH TWICE A DAY 180 tablet 1 4 Active doxycycline (Vibramycin) 100 MG capsuleIndicatio ns:Need for malaria prophylaxis TAKE 1 CAPSULE BY MOUTH ONCE PER DAY. TAKE WITH 8 OZS OF WATER START 2 DAYS PRIOR TO LEAVING AND CONTINUE 4 WEEKS AFTER RETURN TO PREVENT MALARIA. 60 capsule Active Active Problems Problem Noted Date Diagnosed Date Travel advice encounter 10/16/2023 Overview (10/16/2023): Planning international travel - needing lab titers prior to trip. Shortness of breath 10/16/2023 Overview (11/14/2023): Occasionally has SOB, almost daily. It comes out of nowhere . Able to walk daily and walk steep hills - but no SOB during that time. Started after last COVID infection about 1 year ago. No Fever/chills. No chest pain. Normal echo 05/2023. Will get PFTs. Abnormal chest CT 10/16/2023 Overview (10/16/2023): With regards to follow up CT imaging for ground glass, I would reimage in 3 months with a high resolution chest CT (HRCT) or chest CT with 1-1.5 mm slice thickness (preferably latter as it would also image the area of 3 mm nodule: HRCT protocol typically takes a few images in each quarter of lung going from top to bottom). Both of these would be noncontrast. If the GGO persist, are worse, or some bucket turner to be fine fibrosis, reconsult/contact me through [facility] portal. With regards to lung cancer screening CT follow up (if she is still eligible): 1. If she gets the [address] and there are no new nodules, and previous is either same size or smaller, her next low dose lung cancer screening CT should be done [address] 2. If the [address] does not image area of previous 3 mm nodule and there are no new nodules, then , her next low dose lung cancer screening CT should be done [address], so around 09/13/2024. 3. If the [address] shows previous nodule is 5mm or larger, then reconsult [facility] for advice. Next step would depend on how large it is. Similarly, if there are new nodules that are 4mm or larger, reconsult. Lastly, a few other questions for patient which are part of ILD work up: 1. Does she have any birds e.g. parrot/parakeet, keep chickens for eggs, breed pigeons? 2. Does she have down feather jacket, comforter, pillows? Feather stuffed furniture? 3. Does she live/work on farm? 4. Does she own a hot tub and perform usual maintenance/cleaning herself? 5. Does she have any rheumatologic/autoimmune conditions such as rheumatoid arthritis? Moderate depressive disorder 10/03/2023 Tick bite of left front wall of thorax Overview (10/03/2023): Recent tick bite. Discussed options - will treat with Doxycycline. Reviewed medication, administration, and potential side effects. Encounter to discuss test results 10/03/2023 Overview (10/16/2023): CT Test Results Reviewed and discussed. Plan for pulm consult for next steps. Palpitations 08/17/2023 Overview (08/17/2023): Sometimes feel palpitations. Cut back on coffee. Happens randomly, and at rest. Did cocaine x 10 years, on the weekends. Denies any CP, dizziness, LE edema. Will keep log of symptoms. Reviewed when to go to ER, when to call clinic. Will continue to monitor/workup. Routine general medical exam ination at a health care facility 08/02/2023 Overview (08/17/2023): CPE done 08/02/23 HEALTH CARE MAINTENANCE: Colonoscopy (age 45-75): 2016, needs repeat because was supposed to return in few years due to incomplete prep. Will refer to GI. Mammogram (age 40-74): Done 2019, due for repeat. Mammogram ordered. AAA Screen (Fam Hx AAA): No known family history. LDCT (smoke >30 pack year, age 55-80): 11.25 pack year history. DEXA (age 61 with RF, age 66): Osteopenia, done 2019. Will order. POT BUILDER: Outside POT BUILDER: None Contraception: Menopause LMP: 1999. No vaginal bleeding since that time. Last PAP Smear: Age 73 - Stopped in 2019, believes it was normal. IMMUNIZATIONS: Tetanus (every 10 years): 2013, due. Done in clinic today. Pneumococcal (age 66): x2 Shingrix (age 51): x 1, never went back for second. Discussed going to pharmacy for second vaccine. COVID: Moderna x 3, done 2020. Does not want any boosters. FLU: Does not want. All health care maintenance and immunizations reviewed, as above. Postmenopause 08/02/2023 Hyperlipidemia 08/02/2023 Overview (10/03/2023): Will check labs. Chronic cough 08/02/2023 Overview (12/22/2023): Images from the original note were not included. Has chronic cough, usually in AM. Has air purifier in room. Uses netti pot and Flonase in spring with allergies. Chronic bronchitis and pneumonia with illnesses. Smoked age 16 - 61, smoked 12 cigarettes per week. Had hard time taking a deep breath. Per Pulm consult via [facility]: For your patient? s chronic cough, consider followin. Pulmonary function testing - pre/post bronchodilator spirometry to evaluate for possible asthma or COPD. If her post bronchodilator FEV1/FVC ratio < 0.70 0r 70%, start regular LAMA inhaler, prn albuterol. If results are consistent with asthma (seems unlikely), start albuterol. Ideally, also obtain Lung volumes and diffusing capacity to evaluate for possible ILD (total lung capacity and DLCO would be reduced). If latter cannot be obtained but post bronchodilator FVC is reduced, that would be consistent with ILD but can also be seen in asthma or COPD if there is significant air trapping. If results are consistent with ILD, concult/contact me through [facility] portal. 2. Trial of Nasal steroid daily or BID for month for post nasal drip. If cough improves/resolves, would be consistent with PNDS. I usually also treat with nonsedating OTC antihistamine for the month as well. If there is any suspicion for chronic sinusitis, image sinuses (sinus CT is best, usually less radiation these days than traditional sinus x-rays). 3. If she has symptoms to suggest LRP, hoarse voice in AM, sour taste in AM or sxs of GERD, 4-6 week trial of PPI and diet/behavioral modifications (avoid acidic/spicy foods including citrus, tomato based, avoid caffeine, avoid ETOH, small frequent meals, sleep with head/shoulders elevated 30-45 degrees). Do not want her to be on residential PPI; go to prn or [facility] 11/02/23: No improvement on cough with Flonase. Denies GERD / GERD sx such as hoarse voice in AM, sour taste in mouth, etc. No birds e.g. parrot/parakeet, keep chickens for eggs, breed pigeons. Does not work on farm. No hot tub. No Rheum/Immuno conditions. Does have down feather comforter and pillows Still having SOB with exertion. PFT 11/2023: Osteopenia 08/02/2023 Overview (10/21/2023): Images from the original note were not included. DEXA 10/13/23: Colon cancer screening 08/02/2023 Encounter for screening mamm ogram for malignant neoplasm of breast 08/02/2023 Snoring 06/27/2023 Overview (06/27/2023): Tried [employer] [facility] - feedback from [facility] is that she snores (able to hear audio recording of snoring) and has sleep apnea (able to hear audio recording of extended pauses of breathing and then gasp/deep breath). Does have daytime fatigue. Discussed options - will refer to sleep medicine for further evaluation. Abnormal Pap smear of cervix 07/08/2022 Acute stress reaction 07/08/2022 Age-related nuclear cataract of both eyes 2022 Bladder leak 07/08/2022 Dysphagia 07/08/2022 Elevated LDL cholesterol level 07/08/2022 Major depressive disorder, single episode, unspe cified 07/08/2022 Microscopic colitis 07/08/2022 Mild intermittent asthma without complication Vaginal atrophy 07/08/2022 Resolved Problems Problem Noted Date Diagnosed Date Resolved Date Nicotine dependence, cigarettes, in remission 08/02/19 24 10/16/2023 Overview (08/17/2023): Smoked age 16 - 61, smoked 12 cigarettes per week. 11.25 pack year history. Headache 07/08/2022 10/16/2023 Acute cough 07/08/2022 08/17/2023 Assessment & Plan (07/08/2022 10:34 AM EST): Cough x 1 week following viral illness. LS CTA, Denies SOB except mild SOB with exertion. Overall feeling well except lingering cough. Afebrile, normal HR, RR, and O2 sat. Unlikely pneumonia. Discussed cough, viral illness, and expected course of recovery. Discussed supportive care, rest, hydration, etc. Call clinic if S/S worsen in any way, or cough lasts longer than 3 weeks. Encounters Date Type Department Care Team Description 07/02/2024 Orders Only [facility] Information Management [address] [place] [address] Tracey Lovett DO 06/06/2024 9:20 AM EST Office Visit [facility] DENTAL [address] [place] [address] Avani Martinez on teeth (Primary Dx); Dental calculus; Encounter for dental examination; Stage 2 grade A localized periodontitis per AAP/EFP 2017 classification; Stage 3 grade B generalized periodontitis per AAP/EFP 2017 classification 06/05/2024 Travel 04/10/2024 Orders Only [facility] Information [facility] [address] [place] [address] Tracey Lovett DO 04/07/2024 Orders Only [facility] MEDICAL [address] [place] [address] Provider, MD Maria Fernanda from Last 3 Months Immunizations Name Administration Dates Next Due Hep A, Adult 01/16/2003,05/07/2002 Hep B, adult 11/30/2023,11/02/2023,05/02/2002 Influenza High-dose Quadriva lent Preservative Free 02/27/2020 Influenza Quadrivalent Adjuvanted 03/07/2022 Influenza, High Dose Seasona l, Preservative Free 03/02/2021 Influenza, IIV3, injectable 03/29/2013, 1 Influenza, Split (incl. trice fied surface antigen) 06/09/2012,03/19/2010 Meningococcal MCV4P ACYW-135 08/09/2013 Moderna Covid-19 Vaccine 12+ 11/02/2023 PPD Test 12/16/1999 Pneumococcal Polysaccharide PPSV23 05/07/2019, TD (adult), 2 Lf tetanus tox oid, preservative free, adsorbed 08/02/2023,01/21/1998 Tdap 06/09/2012 Varicella 07/19/2001 Zoster, Recombinant 05/07/2019 Family History Medical History Relation Name Comments Cataracts Brother 1 Stroke Brother 1 COVID Brother 2 Heart attack Father Relation Name Status Comments Brother 1 Brother 2 Father Social History Tobacco Use Types Packs/Day Years Used Date Smoking Tobacco: Former Cigarettes 0.3 45 1 967 - 2012 Passive Smoke Exposure: Past Smokeless Tobacco: Never Tobacco Cessation:Counseling Given: Not Answered Alcohol Use Standard Drinks/Week Comments Yes 0 [...] the past 12 months, has t he [employer], gas, oil or [employer] threatened to shut off services in your [...] file Not on file Not on file Last Filed Vital Signs Vital Sign Reading Time Taken Comments Blood Pressure 118/60 03/06/2024 11:46 AM EDT Pulse 62 03/06/2024 11:46 AM EDT Temperature 36.4 ??C (97.5 ??F) 03/06/2024 1 1:46 AM EDT Respiratory Rate 16 09/20/2023 8:54 AM EDT Oxygen Saturation 99% 03/06/2024 11: 46 AM EDT Inhaled Oxygen Concentration - - Weight 67.5 kg (148 lb 14.4 oz) 024 11:46 AM EDT Height 167.6 cm (5' 6 ) 03/06/2024 11:4 6 AM EDT Body Mass Index 24.03 03/06/2024 11:46 AM EDT Plan of Treatment Upcoming Encounters Date Type Department Care Team (Late st Contact Info) Description 12/06/2024 11:00 AM EDT Office Visit [place] [facility] DENTAL [address] [place] [address] Juan Avani Health Maintenance Due Date Last Done Comments CT Colonography 1951 FIT DNA/Cologuard 1950 FIT 1950 FOBT 1950 Sigmoidoscopy 1950 Alcohol/Substance Use Screening 1963 Hepatitis C Screening 1969 RSV Patients and Patients Aged 60 years or older (1 - Risk 60-74 years 1-dose series) 2011 Zoster Vaccines (2 of 2) 07/02/2019 05/07/2019 Pneumococcal Vaccine: 50+ Years (2 of 2 - PCV) 05/07/2020 05/07/2019, 06/21/2012 Dental X-Ray: Full Mouth 08/20/2023 021, 06/07/2017, 07/18/2012, Additional history exists COVID-19 Vaccine ( season) 2024 11/02/2023, 05/07/2021, 08/11/2020, Additional history exists Influenza Vaccine (#1) 2024 , 03/02/2021, 02/27/2020, Additional history exists HPV/Cotest 01/24/2024 Pap Smear 01/24/2024 01/23/2019 Hepatitis B Vaccines (3 of 3 - 19+ 3-dose series) 01/25/2024 11/30/2023, 11/02/2023, 05/02/2002 Depression Monitoring (PHQ-9) 03/24/2024 09/22/2023, 08/02/2023 Depression Screening 09/21/2024 09/22/2023, 08/02/19 24 SDOH Screening 09/21/2024 09/22/2023 Dental X-Ray: Bitewings 10/06/2024 10/06/19 24, 09/06/2022, 08/31/2021, Additional history exists Dental Oral Exam 12/05/2024 06/06/2024, , 06/03/2023, Additional history exists Dental Prophylaxis 12/05/2024 06/06/2024, 0 10/06/2023, 06/03/2023, Additional history exists Tobacco Screening 06/06/2025 06/06/2024 Mammogram 10/10/2025 10/11/2023, 05/05/2023, 04/26/2019, Additional history exists Colonoscopy 11/03/2025 11/04/2015, 05/24/2013 Colorectal Cancer Screening 11/03/2025 DTaP/Tdap/Td Vaccines (3 - Td or Tdap) 08/01/2033 08/02/2023, 06/09/2012, 01/21/1998 Hepatitis A Vaccines Completed 01/16/2003, 05/07/20 Meningococcal Vaccine Aged Out 08/09/2013 No ki estefanía eligible based on patient's age to complete this topic HIB Vaccines Aged Out No longer eligi ble based on patient's age to complete this topic HPV Vaccines Aged Out No longer eligi ble based on patient's age to complete this topic IPV Vaccines Aged Out No longer eligi ble based on patient's age to complete this topic RSV under 20 months Aged Out No longe r eligible based on patient's age to complete this topic Rotavirus Vaccines Aged Out No longer eligible based on patient's age to complete this topic Procedures Procedure Name Priority Date/Time Associated Diagnosis Comments FL ESOPHAGUS BARIUM SWALLOW Routine 07/02/2024 2:22 PM EST AMB REFERRAL TO CARDIOLOGY Routine 06/18/2024 Palpitations Shortness of breath Full PROPHYLAXIS - ADULT Routine 06/06/2024 9:20 AM EST PERIODIC ORAL EVALUATION - ESTABLISHED PATIENT Routine 06/06/2024 9:20 AM EST 3 EXTRACTION Routine 06/06/2024 12:00 AM EST BI MAMMOGRAM SCREENING BILATERAL Routine 10/11/2023 Encounter for screening mammogram for malignant neoplasm of breast BITEWINGS - 4 RADIOGRAPHIC IMAGES Routine 10/06/2023 9:20 AM EDT INTRAORAL - COMPLETE SERIES OF RADIOGRAPHIC IMAGES Routine 08/18/2020 12:00 AM EDT PAP SMEAR Routine 01/23/2019 12:00 AM EDT COLONOSCOPY Routine 11/04/2015 11:07 AM EDT from Last 3 Months or Most Recently Relevant to Health Maintenance Results * FL Esophagus Barium Swallow (07/02/2024 2:22 PM EST) Anatomical Region Laterality Modality Head, Neck Radiographic Nan ging Tracey King DO IMG FLUOROSCOPY PROCEDURES Fin al Result * Referral to Cardiology (06/18/2024) Tracey King DO OUTPATIENT REFERRAL ORDERABLES Final Result * BI Mammogram Screening Bilateral (10/11/2023) Anatomical Region Laterality Modality Breast Bilateral Mammography Tamia Reid ADULT HIGH SCHOOL INSTRUCTOR IMG BI PROCEDURES Final Result * Pap Smear (01/23/2019 12:00 AM EDT) Swab Result [facility] Maria Fernanda Provider LAB CYTOLOGY ORDERABLES F inal Result * -Colonoscopy (11/04/2015 11:07 AM EDT) Anatomical Region Laterality Modality Endoscopy 11/04/2015 11:0 7 AM EDT Narrative 11/04/2015 11:07 AM EDT Refer to Fovea for result details Legacy Procedure: -Colonoscopy Procedure Note ProviderMaria Fernanda MD - 08/14/2022 Refer to Fovea for result details Legacy Procedure: -Colonoscopy Suzan Block MD ENDOSCOPY PROCEDURE ORDERABLES F inal Result from Last 3 Months or Most Recently Relevant to [place] [id number] [facility] Care Teams Sde Relationship Specialty Start Date End Date Tracey Lovett DO [address] [place] [address] PCP - General Family Medicine 02/16/24 Olga Guillen Health Navigator 02/24/24
--- OUTSIDE RECORDS SUMMARY | 2024-07-06 13:14 | XMS_ITS | Encounter Summary ---
Author Organization [employer] Address [address] [facility] [address] [place] [address] Care Team Providers Care Vp Research Name Role Phone Tamia Reid Primary Care Provider [phone] Tracey Lovett DO Primary Care Provider [phone] Olga Guillen Unavailable Unavailable Encounter Details Date Type Department Care Team (Late st Contact Info) Description 12/19/2023 Orders Only [facility] MEDICAL [address] [place] [address] Tamia Reid FNP [address] [place] [address] Chronic cough; Shortness of breath Social History Tobacco Use Types Packs/Day Years [...] Description 12/06/2024 11:00 AM EDT Office Visit [facility] DENTAL [address] [place] [id number] Avani Martinez documented as of this encounter Procedures Procedure Name Priority Date/Time Associated Diagnosis Comments PULMONARY FUNCTION TESTING Routine 12/15/2023 Chronic cough Shortness of breath documented in this encounter Results * Pulmonary Function Test (12/15/2023) Tamia BOYD PFT ORDERABLES Final Result documented in this encounter Visit Diagnoses Diagnosis Chronic cough Cough Shortness of breath documented in this encounter Additional Health Concerns Assessment Noted Time PHQ-9 Depression Total Score: 12 024 10:00 AM EDT documented as of this encounter Care Teams Vp Research Relationship Specialty Start Date End Date Tamia Reid FNP [address] [facility] [place] [address] PCP - General Family Medicine 11/14/23 02/15/24 Tracey Lovett DO [address] [facility] [place] [address] PCP - General Family Medicine 02/16/24 Olga Guillen Health Navigator 02/24/24 documented as of this encounter
--- OUTSIDE RECORDS SUMMARY | 2024-07-06 13:14 | XMS_ITS | Encounter Summary ---
Author Organization [employer] Address [address] [place] [address] Care Team Providers Care Spring Tester Name Role Phone Yuly Norwood Unassigned Primary Care Provider Suzan Atkins MD Primary Care Provider [phone] Tamia Reid Primary Care Provider [phone] Tracey Lovett DO Primary Care Provider [phone] Olga Guillen Unavailable Unavailable Encounter Details Date Type Department Care Team (Latest Contact Info) Description 06/20/2018 Abstract [facility] Dental, Provider, DDS Social [...] Description 12/06/2024 11:00 AM EDT Office Visit [place] [facility] DENTAL [address] [place] [address] Avani Martinez documented as of this encounter Visit Diagnoses Not on filedocumented in this encounter Care Teams Spring Tester Relationship Specialty Start Date End Date PcpYuly Unassigned PCP - General Family Medicine 09/20/22 01/18/23 Suzan Block MD [address] [place] [address] PCP - General Internal Medicine 01/19/23 11/13/23 Tamia Reid FNP [address] [place] [address] PCP - General Family Medicine 11/14/23 02/15/24 Tracey Lovett DO [address] [place] [address] PCP - General Family Medicine 02/16/24 Olga Guillen Health Navigator 02/24/24 documented as of this encounter
--- OUTSIDE RECORDS SUMMARY | 2024-07-06 13:14 | XMS_ITS | Encounter Summary ---
Author Organization [employer] Address [address] [facility] [address] [place] [address] Care Team Providers Care Corporate Tax Manager Name Role Phone Tracey Lovett DO Primary Care Provider [phone] Olga Guillen Unavailable Unavailable Encounter Details Date Type Department Care Team (Late st Contact Info) Description 04/10/2024 Orders Only [facility] [address] [place] [address] Tracey Lovett DO [address] [place] [address] Social History Tobacco Use Types Packs/Day Years [...] Description 12/06/2024 11:00 AM EDT Office Visit [facility] DENTAL [address] [place] [address] Avani Martinez documented as of this encounter Procedures Procedure Name Priority Date/Time Associated Diagnosis Comments MECHELLE SCREEN, IFA, W/REFL TITER AND PATTERN Routine 04/02/2024 2:45 PM EST documented in this encounter Results * MECHELLE Screen,IFA, with Reflex to Titer and Pattern (04/02/2024 2:45 PM EST) Blood Venous blood specimen / Unknown Tracey Lovett DO LAB BLOOD ORDERABLES Final Res ult documented in this encounter Visit Diagnoses Not on filedocumented in this encounter Additional Health Concerns Assessment Noted Time PHQ-9 Depression Total Score: 12 024 10:00 AM EDT documented as of this encounter Care Teams Corporate Tax Manager Relationship Specialty Start Date End Date Tracey Lovett DO [address] [place] [address] PCP - General Family Medicine 02/16/24 Olga Guillen Health Navigator 02/24/24 documented as of this encounter
--- OUTSIDE RECORDS SUMMARY | 2024-07-06 13:14 | XMS_ITS | Encounter Summary ---
Author Organization [employer] Address [address] [place] [address] Care Team Providers Care Emergency Nurse Name Role Phone Yuly Norwood Unassigned Primary Care Provider Suzan Atkins MD Primary Care Provider [phone] Tamia Reid Primary Care Provider [phone] Tracey Lovett DO Primary Care Provider Olga Guillen Unavailable Unavailable Encounter Details Date Type Department Care Team (Latest Contact Info) Description 06/25/2019 Abstract [facility] Dental, Provider, DDS Social [...] Description 12/06/2024 11:00 AM EDT Office Visit [place] [facility] DENT[facility] [address] [place] [address] Avani Martinez documented as of this encounter Visit Diagnoses Not on filedocumented in this encounter Care Teams Emergency Nurse Relationship Specialty Start Date End Date PcpYuly Unassigned PCP - General Family Medicine 09/20/22 01/18/23 Suzan Block MD [address] [place] [address] PCP - General Internal Medicine 01/19/23 11/13/23 Tamia Reid FNP [address] [place] [address] PCP - General Family Medicine 11/14/23 02/15/24 Tracey Lovett DO [address] [place] [address] PCP - General Family Medicine 02/16/24 Olga Guillen Health Navigator 02/24/24 documented as of this encounter
== END 2024-07-06 14:08 | disposition home or self-care (01) ==
PROVIDERS: PCP Family Medicine; Visit Provider Hospitalist
DX: J84.9 Interstitial pulmonary disease, unspecified (principal); G47.33 Obstructive sleep apnea (adult) (pediatric); R06.09 Other forms of dyspnea; J41.0 Simple chronic bronchitis
CPT/HCPCS: 99215

== ENCOUNTER → 2024-07-06 12:51 | Outpatient (BNVA) | payer MEDICARE, MEDICAID, SELFPAY | PROVIDERS: PCP Family Medicine; Visit Provider Hospitalist | DX: J84.9 Interstitial pulmonary disease, unspecified (principal); J41.0 Simple chronic bronchitis; G47.33 Obstructive sleep apnea (adult) (pediatric); R06.09 Other forms of dyspnea; Z23 Encounter for immunization | CPT/HCPCS: 90471; 90656; 99212 ==

== ENCOUNTER 2025-02-07 10:00 | Outpatient (AMB) | payer MEDICARE, MEDICAID, SELFPAY ==
--- OUTSIDE RECORDS SUMMARY | 2009-01-22 | XMS_ITS | Encounter Summary ---
Author Organization [facility] Address [address] [place] [address] [place] [phone] Phone Care Team Providers Care Motion Picture Set Worker Name Role Phone Unavailable Primary Care Provider Unavailabl e Encounter Details Date Type Department Care Team (Late st Contact Info) Description 01/22/2009 Hospital Encounter [facility],Outside Imaging [address] [place], [place] [id number] Unknown, Unknown, Social History Tobacco Use Types Packs/Day Years Used Date Smoking Tobacco: Former Cigarettes Smokeless Tobacco: Never Education Answer Date Recorded Are you interested in more education? Not on brianda e 09/17/2022 Are you concerned about learning? Not on file 09/17/2022 No 09/17/2022 No 09/17/2022 Digital Access Answer Date Recorded No 10/18/2022 No 10/18/2022 Reliable internet access at home? Not on file 10/18/2022 Device with a working camera? Not on file Comments No Sex and Gender Information Value Date Recorded Sex Assigned at Not on file Legal Sex Female 10:00 PM EDT Gender Identity Female 08/08/2023 10:44 AM EDT Sexual Orientation Not on file documented as of this encounter Plan of Treatment Upcoming Encounters Date Type Department Care Team (Late st Contact Info) Description 03/19/2025 8:00 AM EDT [place] [facility] [place] [facility] [address] [facility], 2nd Floor, [address] [place] [address] Yovany Fletcher MD [address] [place] [id number] [email or web address] 03/19/2025 8:15 AM EDT [place] [facility] [place] [facility] [address] [facility], 2nd Floor, [address] [place] [address] Yovany Fletcher MD [address] [place] [address] [email or web address] 03/19/2025 9:20 AM EDT Office Visit [facility] [address] [facility], 2nd Floor, [address] [place] [address] Yovany Fletcher MD [address] [place] [address] [email or web address] documented as of this encounter Procedures Procedure Name Priority Date/Time Associated Diagnosis Comments BI MAMMOGRAM OUTSIDE (NO INTERPRETATION) Routine 01/22/2009 12:00 AM EDT documented in this encounter Results * Mammogram Outside (No Interpretation) (01/22/2009 12:00 AM EDT) Narrative SYSTEMGENERATED, DOCUMENTATION - 09/20/2023 10:13 AM EDT This study is for PACS storage only and not for interpretation. us Unknown Unknown MD PEREZ OUTSIDE IMAGING W/OUT INT ERPRETATION Final Result documented in this encounter Visit Diagnoses Not on filedocumented in this encounter Additional Source Comments The information contained in this document represents components of the legal health record. It is not the complete legal health record.[facility]
--- NOTE | 2025-02-07 10:16 | A.OFFVIS_ITS ---
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 Apparently for the last year she has been noticing increasing shortness of breath. Going up a flight of stairs or going up an incline. She is an avid walker and sometimes she goes hiking. She has been noticing that her level exercise has been less. She also developed a cough which is nonproductive in nature. Because of the ongoing symptoms in because the patient's mother and bro ther both had lung cancer she request a chest x-ray. Her x-ray was abnormal with some reticular changes and some ground-glass opacities. Therefore the recommendation was to get a repeat x-ray in 3 months. I which time the patient did go to [place] for vacation and she started developing worsening shortness of breath then. Therefore when she got back from her trip she ended up getting the x-ray demonstrating still the persistent changes and therefore the patient underwent a CT of the chest with IV contrast. I did personally review the CAT scan with her. The patient does have peripheral base reticular changes bilaterally but left more than right. In the lingula there is some areas of ground-glass opacities and ill-defined fluffy opacity that area. For the most part though is primarily reticular primarily in the bases. The question of UIP brought was brought up by the radiologist. The degree is [id number]. During the visit we did go for a walking oximetry the patient maintain a pulse ox of 95% with activity and the heart rate was also stable. She does have episodes of palpitations. And she will be seen a hanger off. In the meantime she does have an elevated daytime drowsiness score and she did have a sleep study and she was found to have severe sleep apnea. She did recently start CPAP therapy. As far as exposures the patient does have some minimal exposure to different homes and houses and she has been exposed to mold. Denies any smoking although secondhand smoke may have played a role some point in her life. Denies any exposure to any inorganic dust or fumes or toxins otherwise. As far as any relevant issues she has been told about having arthritis and she also has Raynaud's. But no significant connective tissue disease in the family. Denies any rashes. Will go ahead and request blood work to see if there is any etiologies that could explain her underlying interstitial lung disease. No need for considering biopsy at this time. Her PFTs were done which we did review which demonstrated decreased FEV1 to FVC ratio of 72% but otherwise her lung volumes and diffusing capacity were normal. Will plan to repeat the spirometry during the next visit. Hold off on any therapy at this time. If there is any progression of disease will consider Ofev. 07/06/2024 the patient is here for pulmonary follow-up visit. Overall she is doing okay. She still has episodes of tachycardia palpitations when she stands up. Otherwise denies any worsening shortness of breath or cough. She did undergo a barium swallow demonstrating no evidence of hiatal hernia reflux. She also did undergo blood work including connective tissue disease workup and hypersensitivity panel which were all negative. All reassuring. We again reviewed her CT scan from 09/10/2023 and also again from 02/10/2024 demonstrating the peripheral nature of the reticular changes and honeycombing. We did talk about the differential idiopathic parenchymal lung diseases. Her last PFTs from the summer and we had her repeating spirometry today. It appears that her FVC and FEV1 are both normal although her FEV1 to FVC ratio 70%. She still has some symptoms of dyspnea when she exercises. [id number]-ixmtdvam severity and also some shortness of breath when she rises. Therefore, have her start Breo once a day. She will rinse her mouth well. The patient does have a appointment in [place] scheduled to have this evaluated as well. I did recommend she can push her appointment to the summer so we can see if there is indeed any evidence of progression. For now though is reassuring that we see that her disease state is stable. 02/07/2025 the patient is here for a pulmonary follow-up visit. Overall the patient has been doing fairly well though she started developing some chest heaviness at times. Specially with activity. She likes to hike so therefore she wants to feel comfortable being able to go for long hikes and enjoying the outdoors. She did not tolerate the Breo. Did not feel like it helped her in did not like the idea of taking something regularly. I do believe her rescue inhaler be a good idea for her. We did have a nurse give her some teach him how to use it correctly. The patient's last PFTs were back in November 2023 will go ahead and order PFTs to be done now. If her PFTs are abnormal then will be reasonable for her to go to [place] for a an opinion in likely have imaging studies there. If her PFTs appeared to be stable then we can do just a repeat CAT scan locally and we can continue to monitor her locally. Clinically the patient is doing well and respiratory post I do not appreciate any crackles on exam which is reassuring. [facility] Medical History (Updated 07/09/24 @ 13:22 by John Murphy MD) COPD (chronic obstructive pulmonary disease) Dyspnea ARYAN on CPAP ILD (interstitial lung disease) Social History Years Smoked: Very occasional smoker. 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) Neuro Reports no additional complaints Royce/Lymph Reports no additional complaints Aller/Immun Denies wheezing Physical Exam Vital Signs: Last Vital Signs Pulse 58 02/07/25 10:17 BP 136/72 02/07/25 10:17 Pulse Ox 99 02/07/25 10:17 Oxygen Delivery Method Room Air 02/07/25 10:17 BMI result Body Mass Index 23.8 Const General: comfortable HEENT Head: Yes normocephalic Neck Neck: Yes supple Chest Chest palpation & inspection: normal inspection of the chest Resp Effort & Inspection: normal respiratory effort Auscultation: no rales (end inspiration) and diminished lung sounds Cardio Heart sounds: S1 normal heart sound present and S2 normal heart sound present GI Palpation (GI): Soft to palpation Skin General skin exam: no rashes or lesions noted Extrem General: Yes no clubbing, cyanosis or edema Assessment & Plan Assessment & Plan (1) ILD (interstitial lung disease): Code(s): J84.9 - Interstitial pulmonary disease, unspecified Category: Medical (2) ARYAN on CPAP: Code(s): G47.33 - Obstructive sleep apnea (adult) (pediatric) Category: Medical (3) Dyspnea: Code(s): R06.00 - Dyspnea, unspecified Category: Medical Qualifiers: Dyspnea type: dyspnea on exertion Qualified Code(s): R06.09 - Other forms of dyspnea (4) COPD (chronic obstructive pulmonary disease): Comment: based on pre bronchodilator numbers. Could potentially be reversible. Although, not responsive to bronchodilators on her initial PFTs from 11/2023 Code(s): J44.9 - Chronic obstructive pulmonary disease, unspecified Category: Medical Qualifiers: COPD type: chronic bronchitis Chronic bronchitis type: simple Qualified Code(s): J41.0 - Simple chronic bronchitis Plan The findings of the CT chest are demonstrating early process of ILD. The distribution and the reticular nature is suspicious for Usual interstitial pneumonia. We will try to identify any precipitating conditions: No medication of concern. No pneumoconiosis. No radiation. No evidence of CTDs. Need to continue to assess if the ILD is progressive. Holding off on meds at this time. Does have a compression fracture so steroids maybe difficult to tolerate REC: stopped Breo daily start REJI as needed continue APAP should sleep with HOB elevated PFTs now CT chest to assess pulmonary fibrosis (If her PFTs are abnormal then she will probably get CT chest at tertiary center) F/U 6 months Medications: New albuterol sulfate 90 mcg/actuation 2 inhalations inhalation Q6H PRN 18 grams 12RF shortness of breath or wheezing 30 days J44.9 - Chronic obstructive pulmonary disease, unspecified Coding Level of Care Code Est Pt Level 4 (90264) Complex EM visit Add On G2211 Diagnoses ILD (interstitial lung disease) J84.9 ARYAN on CPAP G47.33 Dyspnea on exertion R06.09 Dyspnea type: dyspnea on exertion Simple chronic bronchitis J41.0 COPD type: chronic bronchitis Chronic bronchitis type: simple Time Spent (min) 17
[2025-02-07 10:17] VITALS: BP 136/72; PULSE 58; O2SAT 99; BMI 23.8
--- OUTSIDE RECORDS SUMMARY | 2025-02-07 11:48 | XMS_ITS | Encounter Summary ---
Author Organization [employer] Address [address]t [place] [address] Care Team Providers Care Vp Software Support Name Role Phone Suzan Block MD Primary Care Provider [phone] Tamia Reid Primary Care Provider [phone] Tracey Lovett DO Primary Care Provider [phone] Olga Guillen Unavailable Unavailable Encounter Details Date Type Department Care Team (Late st Contact Info) Description 08/25/2023 Orders Only [place] [facility] MED[facility] [address] [place] [address] Tamia Reid FNP [address] [place] [address] Snoring Social History Tobacco Use Types Packs/Day [...] Care Team (Late st Contact Info) Description 06/11/2025 10:10 AM EST Office Visit [place] [facility] [address] [place] [id number] Madelaine To documented as of this encounter Procedures Procedure [...] as of this encounter Care Teams Vp Software Support Relationship Specialty Start Date End Date Suzan Block MD [address] [place] [address] PCP - General Internal Medicine 01/19/23 11/13/23 Tamia Reid FNP [address] [place] [address] PCP - General Family Medicine 11/14/23 02/15/24 Tracey Lovett DO [address] [place] [address] PCP - General Family Medicine 02/16/24 Olga Guillen Health Navigator 02/24/24 documented as of this encounter
--- OUTSIDE RECORDS SUMMARY | 2025-02-07 11:48 | XMS_ITS | Encounter Summary ---
Author Organization [facility] Address [address] [place] [address] [place] [phone] Phone Care Team Providers Care Electrical Parts Reconditioner Name Role Phone Suzan Block MD Primary Care Provider [phone] Encounter Details Date Type Department Care Team (Late st Contact Info) Description 08/02/2023 Procedure Pass [facility], [address] [address] Social History Tobacco Use Types Packs/Day Years Used Date Smoking Tobacco: Never Assessed Education Answer Date Recorded Are you interested [...] Info) Description 03/19/2025 8:00 AM EDT Appointment [facility] [address] [facility], [address], [address] [place] [address] Yovany Fletcher MD [address] [place] [address] [email or web address] 03/19/2025 8:15 AM EDT Appointment [facility] [address] [facility], [address] Floor, [address] [place] [address] Yovany Fletcher MD [address] [place] [address] [email or web address] 03/19/2025 9:20 AM EDT Office Visit [facility] [address], [address] Floor, [address] [place] [address] Yovany Fletcher MD [address] [place] [address] [email or web address] documented as of this encounter Visit Diagnoses Not on filedocumented in this encounter Care Teams Electrical Parts Reconditioner Relationship Specialty Start Date End Date Suzan Block MD [address] [place] [address] [email or web address] PCP - General 03/10/17 documented as of this encounter Additional Source Comments The information contained in this document represents components of the legal health record. It is not the complete legal health record.[facility]
--- OUTSIDE RECORDS SUMMARY | 2025-02-07 11:48 | XMS_ITS | Encounter Summary ---
Author Organization [employer] Address [address] [facility] 7t [place] [address] Care Team Providers Care Framing Machine Tender Name Role Phone Suzan Block MD Primary Care Provider [phone] Tamia Reid Primary Care Provider [phone] Tracey Lovett DO Primary Care Provider [phone] Olga Guillen Unavailable Unavailable Encounter Details Date Type Department Care Team (Late st Contact Info) Description 06/20/2023 Orders Only [place] [facility] MED[facility] [address] [place] [address] Dilma Szymanski MD [address] [place] [address] Palpitations Social History Tobacco Use Types Packs/Day [...] Description 06/11/2025 10:10 AM EST Office Visit [facility] D[facility] [address] [place] [address] Madelaine To documented as of this encounter Procedures Procedure Name Priority Date/Time Associated Diagnosis Comments TRANSTHORACIC ECHO (TTE) COMPLETE Routine 024 Palpitations documented in this encounter Results * Transthoracic Echo (TTE) Complete (06/20/2023) Dilma Szymanski MD CV ECHO PROCEDURES Final Result documented in this encounter Visit Diagnoses Diagnosis Palpitations documented in this encounter Care Teams Framing Machine Tender Relationship Specialty Start Date End Date Suzan Block MD [address] [place] [address] PCP - General Internal Medicine 01/19/23 11/13/23 Tamia Reid FNP [address] [place] [address] PCP - General Family Medicine 11/14/23 02/15/24 Tracey Lovett DO [address] [place] [address] PCP - General Family Medicine 02/16/24 Olga Guillen Health Navigator 02/24/24 documented as of this encounter
--- OUTSIDE RECORDS SUMMARY | 2025-02-07 11:48 | XMS_ITS | Encounter Summary ---
Author Organization [facility] Address [address] [place], [place] [phone] Phone Care Team Providers Care Child Care Assistant Name Role Phone Suzan Block MD Primary Care Provider [phone] Reason for Referral * MRI/CAT Scan - Closed Specialty Diagnoses / Procedures Referred By Contac t Referred To Contact Radiology Diagnoses Left Achilles tendinitis Procedures MRI Ankle (Left) Suzan Block MD Phone: tel: fax: [email or web address] Referral ID Status Reason Start Date Expiration Date Visits Re quested Visits Authorized [id number] Closed 06/15/2022 06/15/2023 1 1 Encounter Details Date Type Department Care Team (Latest Contact Info) Description 06/15/2022 Transcribe Orders Virtual Department [address] [place] [address] Suzan Block MD [address] [place] [address] [email or web address] Left Achilles tendinitis (Primary Dx) Social History Tobacco Use Types Packs/Day Years Used Date Smoking Tobacco: Never Assessed Comments No Sex and Gender Information Value Date Recorded Sex Assigned at Not on file Legal Sex Female 10:00 PM EDT Gender Identity Female 08/08/2023 10:44 AM EDT Sexual Orientation Not on file documented as of this encounter Plan of Treatment Upcoming Encounters Date Type Department Care Team (Late st Contact Info) Description 03/19/2025 8:00 AM EDT Appointment [facility] [address] [facility], 2nd Floor, [address] [place] [address] Yovany Fletcher MD [address] [place] [address] [email or web address] 03/19/2025 8:15 AM EDT Appointment [facility] [address] [facility], [address] Floor, [address] [place] [address] Yovany Fletcher MD [address] [place] [address] [email or web address] 03/19/2025 9:20 AM EDT Office Visit [facility] [address] [facility], 2nd Floor, [address] [place] [address] Yovany Fletcher MD [address] [place] [address] [email or web address] documented as of this encounter Results * MRI ANKLE WITHOUT CONTRAST (LEFT) (07/06/2022 11:36 AM EST) Anatomical Region Laterality Modality Ankle Left Magnetic Resonan ce 07/06/2022 10:0 4 PM EST Impressions 07/06/2022 10:11 PM EST Fusiform Achilles tendinopathy extending 7.3 cm superior to the calcaneal attachment with intrasubstance tearing. Peroneus longus tendinopathy without tear. ATFL is attenuated and possibly chronically torn. 2.1 cm serpentine fluid structure in the expected location of the ATFL may reflect a soft tissue ganglion. Narrative 07/06/2022 10:11 PM EST MRI ANKLE WITHOUT CONTRAST (LEFT) TECHNIQUE: MRI ANKLE WITHOUT CONTRAST (LEFT) COMPARISON: None FINDINGS: BONE AND CARTILAGE: No fracture, osteonecrosis, or marrow replacing lesion. No talar dome osteochondral defect. TENDONS: Fusiform Achilles tendinopathy extending 7.3 cm superior to the calcaneal attachment with diffuse thickening and intrasubstance T2/STIR hyperintense signal, reflecting intrasubstance partial tearing. Peroneus longus tendinopathy without tear. Peroneus brevis tendon intact. Flexor and extensor tendons intact. LIGAMENTS: ATFL attenuated and possibly chronically torn. PTFL and CFL intact. Deltoid ligament complex intact. 2.1 cm T1 hypointense, T2 hyperintense, serpentine fluid structure in the expected location of the ATFL may reflect a soft tissue ganglion (3:8, 7:15). SOFT TISSUES: Normal muscle bulk and signal intensity. OTHER: Tarsal tunnel within normal limits. Normal fat signal within the sinus tarsi. No plantar fascia thickening. Procedure Note Kevin Coker MD - 07/06/2022 MRI ANKLE WITHOUT CONTRAST (LEFT) TECHNIQUE: MRI ANKLE WITHOUT CONTRAST (LEFT) COMPARISON: None FINDINGS: BONE AND CARTILAGE: No fracture, osteonecrosis, or marrow replacinglesion. No talar dome osteochondral defect. TENDONS: Fusiform Achilles tendinopathy extending 7.3 cm superior to thecalcaneal attachment with diffuse thickening and intrasubstance T2/STIRhyperintense signal, reflecting intrasubstance partial tearing. Peroneuslongus tendinopathy without tear. Peroneus brevis tendon intact. Flexorand extensor tendons intact. LIGAMENTS: ATFL attenuated and possibly chronically torn. PTFL and CFLintact. Deltoid ligament complex intact. 2.1 cm T1 hypointense, [id number], serpentine fluid structure in the expected location of theATFL may reflect a soft tissue ganglion (3:8, 7:15). SOFT TISSUES: Normal muscle bulk and signal intensity. OTHER: Tarsal tunnel within normal limits. Normal fat signal within thesinus tarsi. No plantar fascia thickening. IMPRESSION: Fusiform Achilles tendinopathy extending 7.3 cm superior to the calcanealattachment with intrasubstance tearing. Peroneus longus tendinopathy without tear. ATFL is attenuated and possibly chronically torn. 2.1 cm serpentine fluidstructure in the expected location of the ATFL may reflect a soft tissueganglion. Suzan Block MD IMG MR EXTREMITY Final Result documented in this encounter Visit Diagnoses Diagnosis Left Achilles tendinitis- Primary Left Achilles tendinitis documented in this encounter Care Teams Child Care Assistant Relationship Specialty Start Date End Date Suzan Block MD [address] [place] [address] [email or web address] PCP - General 03/10/17 documented as of this encounter Additional Source Comments The information contained in this document represents components of the legal health record. It is not the complete legal health record.[facility]
--- OUTSIDE RECORDS SUMMARY | 2025-02-07 11:48 | XMS_ITS | Encounter Summary ---
Author Organization [facility] Address [address] [place] [address] [place] [address] Phone Care Team Providers Care Technical Document Writer Name Role Phone Suzan Block MD Primary Care Provider [phone] Encounter Details Date Type Department Care Team (Late Contact Info) Description 01/12/2024 Procedure Pass [facility], Ct Scan - [address] [address] Social History Tobacco Use Types Packs/Day Years [...] Info) Description 03/19/2025 8:00 AM EDT Appointment [facility] [address] [facility], 2nd Floor, [address] [place] [address] Yovany Fletcher MD [address] [place] [address] [email or web address] 03/19/2025 8:15 AM EDT Appointment [facility] [address] [facility], 2nd Floor, [address] [place] [address] Yovany Fletcher MD [address] [place] [address] [email or web address] 03/19/2025 9:20 AM EDT Office Visit [facility] [address] [facility], 2nd Floor, [address] [place] [address] Yovany Fletcher MD [address] [place] [address] [email or web address] documented as of this encounter Visit Diagnoses Not on filedocumented in this encounter Care Teams Technical Document Writer Relationship Specialty Start Date End Date Suzan Block MD [address] [place] [address] [email or web address] PCP - General 03/10/17 documented as of this encounter Additional Source Comments The information contained in this document represents components of the legal health record. It is not the complete legal health record.[facility]
--- OUTSIDE RECORDS SUMMARY | 2025-02-07 11:48 | XMS_ITS | Encounter Summary ---
Author Organization [facility] Address [address] [place] [address] Phone Care Team Providers Care Cisco Administrator Name Role Phone Suzan Block MD Primary Care Provider [phone] Encounter Details Date Type Department Care Team (Late Contact Info) Description 05/31/2023 Procedure Pass [facility] [address] [place] [address] Social History Tobacco Use Types Packs/Day Years [...] Encounters Date Type Department Care Team (Late Contact Info) Description 03/19/2025 8:00 AM EDT Appointment [facility] Unit [address] [facility], 2nd Floor, [address] [place] [address] Yovany Fletcher MD [address] [place] [address] [email or web address] 03/19/2025 8:15 AM EDT Appointment [facility] Unit [address] [facility], 2nd Floor, [address] [place] [address] Yovany Fltecher MD [address] [place] [address] [email or web address] 03/19/2025 9:20 AM EDT Office Visit [facility] [address] [facility], 2nd Floor, [address] [place] [address] Yovany Fletcher MD [address] [place] [address] [email or web address] documented as of this encounter Visit Diagnoses Not on filedocumented in this encounter Care Teams Cisco Administrator Relationship Specialty Start Date End Date Suzan Block MD [address] [place] [address] [email or web address] PCP - General 03/10/17 documented as of this encounter Additional Source Comments The information contained in this document represents components of the legal health record. It is not the complete legal health record.[facility]
--- OUTSIDE RECORDS SUMMARY | 2025-02-07 11:48 | XMS_ITS | Encounter Summary ---
Author Organization [employer] Address [address] [facility] [address] [place] [address] Care Team Providers Care Provider Relations Manager Name Role Phone Tracey Lovett DO Primary Care Provider Olga Guillen Unavailable Unavailable Encounter Details Date Type Department Care Team (Late st Contact Info) Description 07/11/2024 Orders Only [facility] [address] [place] [address] Tracey Lovett DO [address] [place] [address] Social History Tobacco Use Types Packs/Day Years Used Date Smoking Tobacco: Former Cigarettes 0.3 45 1 297 - 2011 Passive Smoke Exposure: Past Smokeless [...] t he electric, gas, oil or water [employer] threatened to shut off services in your [...] Description 06/11/2025 10:10 AM EST Office Visit [facility] [address] [place] [address] Madelaine To documented as of this encounter Procedures Procedure Name Priority Date/Time Associated Diagnosis Comments CARDIAC EVENT MONITOR Routine 06/26/2024 9:45 AM EST documented in this encounter Results * Cardiac event monitor (06/26/2024 9:45 AM EST) Tracey Lovett DO CV CARDIAC SERVICES PROCEDURES Final Result documented in this encounter Visit Diagnoses Not on filedocumented in this encounter Additional Health Concerns Assessment Noted Time PHQ-9 Depression Total Score: 12 024 10:00 AM EDT documented as of this encounter Care Teams Provider Relations Manager Relationship Specialty Start Date End Date Tracey Lovett DO [address] [place] [address] PCP - General Family Medicine 02/16/24 Olga Guillen Health Navigator 02/24/24 documented as of this encounter
--- OUTSIDE RECORDS SUMMARY | 2025-02-07 11:48 | XMS_ITS | Encounter Summary ---
Author Organization [facility] Address [address] [place], [place] [id number] Phone Care Team Providers Care Money Room Teller Name Role Phone Suzan Block MD Primary Care Provider [phone] Reason for Referral * Outpatient Procedure - Closed Specialty Diagnoses / Procedures Referred By Jori robledo Referred To Contact Radiology Diagnoses Palpitations Procedures Adult Echo TTE Dilma Szymanski MD Phone: tel: fax: [email or web address] Referral ID Status Reason Start Date Expiration Date Visits Re quested Visits Authorized [id number] Closed 05/31/2023 1 1 Encounter Details Date Type Department Care Team (Latest Contact Info) Description 05/31/2023 Transcribe Orders Virtual Department [address] [place] [phone] Dilma Szymanski MD [address] [place] [address] [email or web address] Palpitations (Primary Dx) Social History Tobacco Use Types [...] Info) Description 03/19/2025 8:00 AM EDT Appointment [facility] [address] [facility], [address] [place] [address] Yovany Fletcher MD [address] [place] [address] [email or web address] 03/19/2025 8:15 AM EDT Appointment [facility] [address] [facility], [address], [address] [place] [address] Yovany Fletcher MD [address] [place] [address] [email or web address] 03/19/2025 9:20 AM EDT Office Visit [facility] [address] [facility], [address]nd [facility], [address] [place] [address] Yovany Fletcher MD [address] [place] [address] [email or web address] documented as of this encounter Results * TTE COMPREHENSIVE (06/20/2023 10:52 AM EST) Body Surface Area 1.76 m2 Height 168 cm Weight 67 kg Systolic BP 130 mmHg Diastolic BP 79 mmHg Interventricular Septum Thickness 8 mm Left Ventricle Internal Diameter End Diastole 37 37 - 52 mm Left Ventricle Internal Diameter End Systole 19 22 - 35 mm Left Ventricular Outflow Tract Diameter 20.0 mm LVOT VTI REST 218.0 mm Left Ventricular Outflow Tract Velocity 0.9 m/s Left Ventricular Outflow Tract Gradient at Rest 4 mmHg Left Ventricular Posterior Wall Thickness 9 mm Ejection Fraction 60 50 - 75 Percent Left Atrium Dimension Anterior-Posterior 37 15 - 40 mm Aortic Valve Mean Gradient 3 mmHg Aortic Valve Time Velocity Integral 253.0 mm Aortic Valve Peak Velocity 127.0 cm/s Aortic Valve Peak Gradient 6 mmHg Aortic Sinus Diameter 27 mm Ascending Aorta Diameter 31 mm Inferior Vena Cava Diameter 12 0.0 - 21 mm Mitral Valve Deceleration Time 399 ms Mitral Valve A Wave Speed 65.1 cm/s Mitral Valve E Wave Speed 57.4 cm/s Right Ventricle Basal Diameter 30 25 - 41 mm Raw LV EF% 74 % Relative Wall Thickness 0.49 0.22 - 0.42 Aortic Valve Sinus Index by BSA 15.34 mm/m2 Ascending Aorta Index 17.61 mm/m2 Ascending Aorta Index 18 mm Aortic Sinus Index 15 mm Ascending Aorta Diameter 18 mm Aortic Valve Sinus Index 1 15 19 - 27 mm AO ASC DIAM BSA INDEX 17.61 Left Atrial Volume Index 26 mL/m2 Left Ventricle E Wave Speed 57.0 cm/s Right Ventricle TAPSE 3 mm Left Ventricle Ea Lateral Wave Speed 8.4 cm/s Right Ventricle Pulse Doppler S Wave 13.7 cm/s MV E/E' Tissue Velocity Lateral 6.79 Left Ventricle A Wave Speed 65.0 cm/s MV E/A ratio 0.9 Left Ventricle Ea Septal Wave Speed 6.4 cm/s MV E/e' septal 8.91 Left Ventricle E/e' Average 0.1 Left Atrial Volume 45 mL Echo E/Ea 8.91 Anatomical Region Laterality Modality Heart Ultrasound Narrative 06/20/2023 11:20 AM EST This patient was imagers normal sinus rhythm. The estimated ejection fraction is 60 to 65% there are no regional wall motion abnormalities diastolic function is normal. There is no evidence of aortic stenosis there is no significant mitral regurgitation the PA pressure is normal Pericardium is normal Left Ventricle The left ventricle is normal in size. There is normal wall thickness. There is normal systolic function. The LV ejection fraction is 60% (calculated via biplane measurement). There are no wall motion abnormalities. LV diastolic function appears within normal limits for age. The E/A ratio is 0.9. The e' septal wave velocity is 6.4 cm/s. The e' lateral wave velocity is 8.4 cm/s. The average E/e' ratio is 0.1. The E/Ea ratio is 8.91. Right Ventricle The right ventricle is normal in size. There is normal RV systolic function. The TAPSE is 3 mm. The peak annular systolic velocity (S') is 13.7 cm/s. Left Atrium The left atrium is normal in size. The left atrial anterior-posterior dimension is 37 mm. The left atrial volume index is 26 mL/m2. Right Atrium The right atrium is normal in size. The IVC is normal in size with normal inspiratory collapse. This is consistent with normal RA pressure. Mitral Valve The mitral valve appears normal. There is no mitral stenosis. There is no mitral regurgitation. Tricuspid Valve The tricuspid valve appears normal. There is no tricuspid stenosis. There is no tricuspid regurgitation. There is an insufficient tricuspid regurgitation to calculate RV systolic pressure. Aortic Valve The aortic valve is tricuspid. There is no aortic stenosis. The peak and mean aortic gradients are 6 mmHg and 3 mmHg respectively.There is no aortic regurgitation. The visualized portions of the thoracic aorta appear normal in size. Pulmonic Valve The pulmonic valve appears normal. There is no pulmonic stenosis. There is no pulmonic regurgitation. General Findings The image quality was good (2). Technique(s) used in the evaluation: Color flow Doppler and Spectral Doppler. The predominant rhythm during the study was sinus. IAS/IVS The interatrial septum appears normal. Dilma Szymanski MD CV ECHO ORDERABLES María l Result documented in this encounter Visit Diagnoses Diagnosis Palpitations- Primary Palpitations documented in this encounter Care Teams Money Room Teller Relationship Specialty Start Date End Date Suzan Block MD [address] [place] [phone] [email or web address] PCP - General 03/10/17 documented as of this encounter Additional Source Comments The information contained in this document represents components of the legal health record. It is not the complete legal health record.[facility]
--- OUTSIDE RECORDS SUMMARY | 2025-02-07 11:48 | XMS_ITS | Encounter Summary ---
Author Organization [facility] Address [address] [place], [place] [id number] Phone Care Team Providers Care Stock Checker Name Role Phone Suzan Block MD Primary Care Provider [phone] Reason for Referral * MRI/CAT Scan - Closed Specialty Diagnoses / Procedures Referred By Jori robledo Referred To Contact Radiology Diagnoses Former smoker Procedures CT Chest Lung Cancer Screening Initial Or Annual Tamia Reid FNP Phone: tel: fax: Referral ID Status Reason Start Date Expiration Date Visits Re quested Visits Authorized [id number] Closed 08/02/2023 08/01/2024 1 1 Encounter Details Date Type Department Care Team (Latest Contact Info) Description 08/02/2023 Transcribe Orders Virtual Department [address] [place] [address] Tamia Reid FNP [address] [place] [address] Encounter for screening mammogram for malignant neoplasm of breast (Primary Dx); Former smoker; Osteopenia, unspecified location Social History Tobacco Use Types Packs/Day Years [...] Info) Description 03/19/2025 8:00 AM EDT Appointment [facility] [address] [facility], 2[address], [address] [place] [address] Yovany Fletcher MD [address] [place] [phone] [email or web address] 03/19/2025 8:15 AM EDT Appointment [facility] [address] [facility], [address], [address] [place] [address] Yovany Fletcher MD [address] [place] [address] [email or web address] 03/19/2025 9:20 AM EDT Office Visit [facility] [address] [facility], 2[address], [address] [place] [address] Yovany Fletcher MD [address] [place] [phone] [email or web address] documented as of this encounter Results * BI MAMMOGRAM SCREENING WITH TOMOSYNTHESIS WITH CAD (BILATERAL) (10/11/2023 2:31 PM EDT) Anatomical Region Laterality Modality Breast Left, Breast Right, Breast Bilateral Bila teral Mammography 10/12/2023 1:04 PM EDT Impressions 10/12/2023 1:05 PM EDT No mammographic evidence of malignancy in either breast. Annual screening mammography is recommended. BI-RADS 1 NEGATIVE The patient will be notified of the results and recommendations. Narrative 10/12/2023 1:05 PM EDT BI MAMMOGRAM SCREENING WITH TOMOSYNTHESIS WITH CAD (BILATERAL) Additional patient information: Screening. COMPARISON: Comparison is made with relevant prior imaging. Breast composition: There are scattered areas of fibroglandular density. FINDINGS: No abnormal masses, suspicious calcifications, or other significant findings are identified mammographically in either breast. There has been no interval change. Procedure Note Silvia Gates MD - 10/12/2023 BI MAMMOGRAM SCREENING WITH TOMOSYNTHESIS WITH CAD (BILATERAL) Additional patient information: Screening. COMPARISON: Comparison is made with relevant prior imaging. Breast composition: There are scattered areas of fibroglandular density. FINDINGS: No abnormal masses, suspicious calcifications, or other significantfindings are identified mammographically in either breast. There has been no interval change. IMPRESSION: No mammographic evidence of malignancy in either breast. Annual screening mammography is recommended. BI-RADS 1 NEGATIVE The patient will be notified of the results and recommendations. Tamia Reid PRINT BUYER IMG MG EXAMS Final Result * BD DXA AXIAL (SPINE) WITH HIP (10/11/2023 2:20 PM EDT) Anatomical Region Laterality Modality Bone Density Bone Density 10/12/2023 1:22 PM EDT Impressions 10/12/2023 5:23 PM EDT Osteopenia based on bone mineral density in the lumbar spine and left hip. There was a 5.5% increase in bone mineral density in the lumbar spine and 0.4% increase in the left hip. ATTESTATION: I, Breezy Louis as teaching physician, have reviewed the images for this case and if necessary edited the report originally created by Michael Schulte. Narrative 10/12/2023 5:23 PM EDT BD DXA AXIAL (SPINE) WITH HIP INDICATION: Follow-up osteopenia. COMPARISON: Previous study 04/26/2019 and baseline study 07/07/2001 Evaluation of the lumbar spine and left hip are obtained and appears technically adequate. The lumbar spine from L3 through L4 discloses a total bone mineral density of 0.886 g/cm2 T-score: -2.0 Z-Score: 0.4 WHO Classification: Osteopenia Change from previous study: 5.5% Change from baseline study: 8.3% The left hip (total) has a total bone mineral density of 0.765 g/cm2 T-score: -1.5 Z-Score: 0.2 WHO Classification: Osteopenia Change from previous study: 0.4% Change from baseline study: -11.1% The left hip (neck) has a total bone mineral density of 0.672 g/cm2 T-score: -1.6 Z-Score: 0.3 FRAX:10-Year Fracture Risk Major Osteoporotic Fracture: 10% Hip Fracture: 1.9% Procedure Note Breezy Louis MD - 10/12/2023 BD DXA AXIAL (SPINE) WITH HIP INDICATION: Follow-up osteopenia. COMPARISON: Previous study 04/26/2019 and baseline study 07/07/2001 Evaluation of the lumbar spine and left hip are obtained and appearstechnically adequate. The lumbar spine from L3 through L4 discloses a total bone mineral densityof 0.886 g/cm2 T-score: -2.0 Z-Score: 0.4 WHO Classification: Osteopenia Change from previous study: 5.5% Change from baseline study: 8.3% The left hip (total) has a total bone mineral density of 0.765 g/cm2 T-score: -1.5 Z-Score: 0.2 WHO Classification: Osteopenia Change from previous study: 0.4% Change from baseline study: -11.1% The left hip (neck) has a total bone mineral density of 0.672 g/cm2 T-score: -1.6 Z-Score: 0.3 FRAX:10-Year Fracture Risk Major Osteoporotic Fracture: 10% Hip Fracture: 1.9% IMPRESSION: Osteopenia based on bone mineral density in the lumbar spine and left hip.There was a 5.5% increase in bone mineral density in the lumbar spine and0.4% increase in the left hip. ATTESTATION: I, Breezy Louis as teaching physician, have reviewed theimages for this case and if necessary edited the report originally createdby Michael Schulte. Tamia Reid PRINT BUYER IMG BD BONE DENSITY DEXA Final Result * CT CHEST LUNG CANCER SCREENING INITIAL (09/11/2023 11:25 AM EDT) Anatomical Region Laterality Modality Chest Computed Tomogra phy 09/12/2023 8:23 AM EDT Impressions 09/14/2023 10:17 AM EDT Multifocal peripheral groundglass airspace opacity with areas of subpleural sparing. Findings are nonspecific with broad differential considerations including infectious versus inflammatory processes. Interstitial lung disease such as NSIP is also a differential consideration. Correlation with clinical history recommended. Consider pulmonology consultation. Lung-RADS Category: 0. Findings suggestive of an inflammatory or infectious process which warrants short-term follow-up to assess for resolution and reassign new Lung-RADS category. --> RECOMMENDATIONS: For new large nodules or parenchymal abnormalities that might suggest inflammatory changes, a short term follow up Chest CT in 1-3 months is advised. To order, please type CT CHEST SCREENING ([email or web address]) and select appropriate FOLLOW UP Imaging Interval. Explanation of the Lung-RADS categories can be found at: [email or web address] Narrative 09/14/2023 10:[address] CHEST LUNG CANCER SCREENING INITIAL Referring clinician's provided indication for this examination in [facility]: Lung Cancer Screening - FORMER smoker, quit in past 15 yrs (20+ pk-yrs, age 50-80) - ICD-10 Z87.891; chronic cough TECHNIQUE: Low dose multidetector CT of the chest was performed without intravenous contrast using tailored dose modulation techniques. COMPARISON: There is no prior study available for comparison FINDINGS: Devices/Tubes/Lines: None. Lungs: There is multifocal peripheral groundglass airspace opacity with areas of subpleural sparing most pronounced at the left upper lobe. There is a 3 mm nodule at the subpleural left lower lobe. No additional pulmonary nodules demonstrated. No focal consolidation. Pleura: No pleural effusion or pneumothorax. Mediastinum: No thyroid nodules. Heart is normal in size. There is no effusion. Lymph Nodes: No enlarged supraclavicular, axillary, mediastinal, or hilar lymph nodes within limitations absence of intravenous contrast. Upper Abdomen: Absence of intravenous contrast and low dose technique limits sensitivity for detecting small lesions, solid organ and vascular findings. No abnormality detected in the visualized upper abdomen. Chest Wall: Limited evaluation of breast parenchyma by CT. No measurable lesion. Bones: Multilevel degenerative changes of the spine. Similar loss of vertebral body height superiorly at L1. Procedure Note Jesika Iglesias MD - 09/14/2023 CT CHEST LUNG CANCER SCREENING INITIAL Referring clinician's provided indication for this examination in [facility]:Lung Cancer Screening - FORMER smoker, quit in past 15 yrs (20+ pk-yrs,age 50-80) - ICD-10 Z87.891; chronic cough TECHNIQUE: Low dose multidetector CT of the chest was performed withoutintravenous contrast using tailored dose modulation techniques. COMPARISON: There is no prior study available for comparison FINDINGS: Devices/Tubes/Lines: None. Lungs: There is multifocal peripheral groundglass airspace opacity withareas of subpleural sparing most pronounced at the left upper lobe. Thereis a 3 mm nodule at the subpleural left lower lobe. No additionalpulmonary nodules demonstrated. No focal consolidation. Pleura: No pleural effusion or pneumothorax. Mediastinum: No thyroid nodules. Heart is normal in size. There is noeffusion. Lymph Nodes: No enlarged supraclavicular, axillary, mediastinal, or hilarlymph nodes within limitations absence of intravenous contrast. Upper Abdomen: Absence of intravenous contrast and low dose techniquelimits sensitivity for detecting small lesions, solid organ and vascularfindings. No abnormality detected in the visualized upper abdomen. Chest Wall: Limited evaluation of breast parenchyma by CT. No measurablelesion. Bones: Multilevel degenerative changes of the spine. Similar loss ofvertebral body height superiorly at L1. IMPRESSION: Multifocal peripheral groundglass airspace opacity with areas ofsubpleural sparing. Findings are nonspecific with broad differentialconsiderations including infectious versus inflammatory processes.Interstitial lung disease such as NSIP is also a differentialconsideration. Correlation with clinical history recommended. Considerpulmonology consultation. Lung-RADS Category: 0. Findings suggestive of an inflammatory orinfectious process which warrants short-term follow-up to assess forresolution and reassign new Lung-RADS category. --> RECOMMENDATIONS: For new large nodules or parenchymal abnormalities that might suggestinflammatory changes, a short term follow up Chest CT in 1-3 months isadvised. To order, please type CT CHEST SCREENING ([email or web address]) and selectappropriate FOLLOW UP Imaging Interval. Explanation of the Lung-RADS categories can be found at:[email or web address] Tamia Reid PRINT BUYER IMG CT CHEST Final Result documented in this encounter Visit Diagnoses Diagnosis Encounter for screening mammogram for malignant neoplasm of breast- Primary Former smoker Personal history of tobacco use, presenting hazards to health Osteopenia, unspecified location Former smoker Personal history of tobacco use, presenting hazards to health Osteopenia, unspecified location Encounter for screening mammogram for malignant neoplasm of breast documented in this encounter Care Teams Stock Checker Relationship Specialty Start Date End Date Suzan Block MD [address] [place] [id number] [email or web address] PCP - General 03/10/17 documented as of this encounter Additional Source Comments The information contained in this document represents components of the legal health record. It is not the complete legal health record.[facility]
--- OUTSIDE RECORDS SUMMARY | 2025-02-07 11:48 | XMS_ITS | Encounter Summary ---
Author Organization [facility] Address [address] [place], [place] [id number] Phone Care Team Providers Care Stock Preparation Supervisor Name Role Phone Suzan Block MD Primary Care Provider [phone] Reason for Referral * MRI/CAT Scan - Closed Specialty Diagnoses / Procedures Referred By Jori robledo Referred To Contact Radiology Diagnoses Abnormal chest CT Procedures CT Chest Tamia Reid FNP Phone: tel: fax: Referral ID Status Reason Start Date Expiration Date Visits Re quested Visits Authorized [id number] Closed 01/12/2024 01/11/2025 1 1 Encounter Details Date Type Department Care Team (Latest Contact Info) Description 01/12/2024 Transcribe Orders Virtual Department [address] [place] [address] Tamia Reid FNP [address] [place] [address] (Primary Dx) Social History Tobacco Use Types [...] Info) Description 03/19/2025 8:00 AM EDT Appointment [facility] [address] [facility], 2nd Floor, [address] [place] [address] Yovany Fletcher MD [address] [place] [address] [email or web address] 03/19/2025 8:15 AM EDT Appointment [facility] [address] [facility], 2[address] Floor, [address] [place] [address] Yovany Fletcher MD [address] [place] [address] [email or web address] 03/19/2025 9:20 AM EDT Office Visit [facility] [address] [facility], 2nd Floor, [address] [place] [address] Yovany Fletcher MD [address] [place] [address] [email or web address] documented as of this encounter Results * CT CHEST WITH CONTRAST (02/20/2024 1:15 PM EDT) Anatomical Region Laterality Modality Chest Computed Tomogra phy 02/21/2024 3:57 PM EDT Impressions 02/21/2024 4:36 PM EDT 1. Interstitial density changes maximal mid to lower chest bilaterally exhibiting peripheral predominance and localized honeycombing findings strongly suggesting UIP. 2. No suspicious lung mass. 3. New mild to moderate severity T8 inferior endplate osteoporotic compression fracture. If patient has severe back pain not well controlled with conservative measures, treatment with kyphoplasty could prove beneficial if MRI shows fracture is active (if edema present). Narrative 02/21/2024 4:[address] CHEST WITH CONTRAST Referring clinician's provided indication for this examination in Epic: Outside Radiology Order; abnormal chest CT Additional clinical information: Follow-up low dose lung cancer screening CT which revealed groundglass opacities. TECHNIQUE: Multidetector CT of the chest was performed with intravenous contrast using tailored dose modulation techniques. COMPARISON: CT chest 09/11/2023. FINDINGS: Devices/Tubes/Lines: None. Lungs: Peripheral reticular opacities evident bilaterally maximal within the lower lobes, additionally affecting periphery of the lingula and lower left upper lobe and minimally affecting the right upper lobe, sparing right middle lobe. Localized honeycombing evident within the left lower lobe (e.g. series 4 image 180). Focal honeycombing involves lower left upper lobe anterolaterally. Normal lung volumes are maintained. There are a few scattered nodular opacities suggested on a high images which are well below threshold for action and do not require follow-up. No discrete groundglass nodule. No lung consolidation. No endobronchial lesion. Pleura: Normal. No pleural effusion or pneumothorax. Mediastinum: Normal. No thyroid nodules. Heart and pericardium are normal. No mediastinal mass or pericardial effusion. Lymph Nodes: Normal. No enlarged supraclavicular, axillary, mediastinal, or hilar lymph nodes. Upper Abdomen: Normal. No abnormality detected in the visualized upper abdomen. Chest Wall: Normal. No chest wall mass. Bones: Stable moderate severity L1 superior endplate compression fracture. New T8 inferior endplate compression fracture resulting in approximate 40% loss of height. No suggestion of underlying mass. No retropulsion of bone. No aggressive focal bony lesion identified. Procedure Note Breezy Louis MD - 02/21/2024 CT CHEST WITH CONTRAST Referring clinician's provided indication for this examination in Epic:Outside Radiology Order; abnormal chest CT Additional clinical information: Follow-up low dose lung cancer screeningCT which revealed groundglass opacities. TECHNIQUE: Multidetector CT of the chest was performed with intravenouscontrast using tailored dose modulation techniques. COMPARISON: CT chest 09/11/2023. FINDINGS: Devices/Tubes/Lines: None. Lungs: Peripheral reticular opacities evident bilaterally maximal withinthe lower lobes, additionally affecting periphery of the lingula and lowerleft upper lobe and minimally affecting the right upper lobe, sparingright middle lobe. Localized honeycombing evident within the left lowerlobe (e.g. series 4 image 180). Focal honeycombing involves lower leftupper lobe anterolaterally. Normal lung volumes are maintained. There area few scattered nodular opacities suggested on a high images which arewell below threshold for action and do not require follow-up. No discretegroundglass nodule. No lung consolidation. No endobronchial lesion. Pleura: Normal. No pleural effusion or pneumothorax. Mediastinum: Normal. No thyroid nodules. Heart and pericardium are normal.No mediastinal mass or pericardial effusion. Lymph Nodes: Normal. No enlarged supraclavicular, axillary, mediastinal,or hilar lymph nodes. Upper Abdomen: Normal. No abnormality detected in the visualized upperabdomen. Chest Wall: Normal. No chest wall mass. Bones: Stable moderate severity L1 superior endplate compression fracture.New T8 inferior endplate compression fracture resulting in approximate 40%loss of height. No suggestion of underlying mass. No retropulsion of bone.No aggressive focal bony lesion identified. IMPRESSION: 1. Interstitial density changes maximal mid to lower chest bilaterallyexhibiting peripheral predominance and localized honeycombing findingsstrongly suggesting UIP. 2. No suspicious lung mass. 3. New mild to moderate severity T8 inferior endplate osteoporoticcompression fracture. If patient has severe back pain not well controlledwith conservative measures, treatment with kyphoplasty could provebeneficial if MRI shows fracture is active (if edema present). Tamia Reid [facility] CT CHEST Final Result documented in this encounter Visit Diagnoses Diagnosis Abnormal chest CT- Primary Nonspecific (abnormal) findings on radiological and other examination of other intrathoracic organs Abnormal chest CT Nonspecific (abnormal) findings on radiological and other examination of other intrathoracic organs documented in this encounter Care Teams Stock Preparation Supervisor Relationship Specialty Start Date End Date Suzan Block MD [address] [place] [address] (work) [email or web address] PCP - General 03/10/17 documented as of this encounter Additional Source Comments The information contained in this document represents components of the legal health record. It is not the complete legal health record.[facility]
--- OUTSIDE RECORDS SUMMARY | 2025-02-07 11:48 | XMS_ITS | Encounter Summary ---
Author Organization [employer] Address [address] [facility] 7t [place] [address] Care Team Providers Care Client Engagement Specialist Name Role Phone Tracey Lovett DO Primary Care Provider [phone] Olga Guillen Unavailable Unavailable Encounter Details Date Type Department Care Team (Late st Contact Info) Description 09/25/2024 Orders Only [place] [facility] [address] [place] [address] Tracey Lovett DO [address] [place] [address] Social History Tobacco Use Types Packs/Day Years Used Date Smoking Tobacco: Former Cigarettes 0.3 45 1 747 - 2011 Passive Smoke Exposure: Past Smokeless [...] t he electric, gas, oil or water [employer] threatened to shut off services in your [...] Description 06/11/2025 10:10 AM EST Office Visit [place] [facility] [address] [place] [address] Madelaine To documented as of this encounter Procedures Procedure Name Priority Date/Time Associated Diagnosis Comments CARDIAC EVENT MONITOR Routine 08/20/2024 10:08 AM EDT documented in this encounter Results * Cardiac event monitor (08/20/2024 10:08 AM EDT) Tracey Lovett DO CV CARDIAC SERVICES PROCEDURES Final Result documented in this encounter Visit Diagnoses Not on filedocumented in this encounter Additional Health Concerns Assessment Noted Time PHQ-9 Depression Total Score: 12 024 10:00 AM EDT documented as of this encounter Care Teams Client Engagement Specialist Relationship Specialty Start Date End Date Tracey Lovett DO [address] [place] [address] PCP - General Family Medicine 02/16/24 Olga Guillen Health Navigator 02/24/24 documented as of this encounter
--- OUTSIDE RECORDS SUMMARY | 2025-02-07 11:48 | XMS_ITS | Clinical Summary ---
Author Organization [facility] Address [address] [place] [address] Phone Care Team Providers Care Turner Off Name Role Phone Suzan Block MD Primary Care Provider [phone] Allergies Active Allergy Reactions Criticality Noted Date Comments Allergen Nmk-Kvncv-Luqup Bee 07/07/2022 Other reaction(s): dizzy,nausea, Medications buPROPion (WELLBUTRIN SR) 150 MG SR 12 hr tablet 2 tablets daily. 01/12/2024 Active cholecalciferol , vitamin D3, 25 mcg (1,000 unit) capsule 1 tablet every morning. Active DULoxetine (CYMBALTA) 60 MG capsule Take by mouth daily. Active meloxicam (MOBIC) 15 MG tablet Take 15 mg by mouth every morning. 05/30/2024 Active Active Problems Problem Noted Date Diagnosed Date Palpitations 06/18/2024 Assessment & Plan (08/20/2024 11:55 AM EDT): She is not on any AV arlene blockers or arrhythmic control. She does have a bradycardic here in the office of 53 bpm. She did wear Holter monitor for approximately 24 hours which did show some bradycardia and tachycardia. Lowest heart rate was at 48 bpm and highest was at 129 bpm. There were some SVT beats seen up to 13 beats. We are going to have her wear Holter monitor for up to 30 days to see if we get a better picture on what her heart rate is doing (she was told that she could stop wearing her monitor sooner than 30 days if she has a few episodes of the symptoms that she has been having that we are trying to investigate). Given that she is bradycardic at times it will be unlikely that we can give her a beta-trinity to suppress her SVT or arrhythmia. She continues to feel dizziness and shortness of breath along with increased heart rate with standing. She does stay hydrated. She is being followed up with pulmonology in [place] as well for her shortness of breath. If needed will have her see the crime data specialist Dr. Norwood. Will follow-up after her monitor has been completed. Social History Tobacco Use Types Packs/Day Years Used Date Smoking Tobacco: Former Cigarettes Smokeless Tobacco: Never Tobacco Cessation:Counseling Given: Not Answered Education Answer Date Recorded Are you interested [...] AM EDT Sexual Orientation Not on file Last Filed Vital Signs Vital Sign Reading Time Taken Comments Blood Pressure 118/74 08/20/2024 11:07 AM EDT Pulse 53 08/20/2024 11:07 AM EDT Temperature - - Respiratory Rate - - Oxygen Saturation 98% 08/20/2024 11:07 AM EDT Inhaled Oxygen Concentration - - Weight 68.9 kg (152 lb) 08/20/2024 11:07 AM EDT Height 167.6 cm (5' 5.98 ) 08/20/2024 11:07 AM E DT Body Mass Index 24.55 08/20/2024 11:07 AM EDT Plan of Treatment Upcoming Encounters Date Type Department Care Team (Late st Contact Info) Description 03/19/2025 8:00 AM EDT [place] [facility] [address] [facility], 2nd [address], [address] [place] [address] Yovany Fletcher MD [address] [place] [address] [email or web address] 03/19/2025 8:15 AM EDT Appointment [facility] [address] [facility], [address]nd Floor, [address] [place] [address] Yovany Fletcher MD [address] [place] [address] [email or web address] 03/19/2025 9:20 AM EDT Office Visit [facility] [address] [facility], 2[address] Floor, [address] [place] [address] Yovany Fletcher MD [address] [place] [address] [email or web address] Health Maintenance Due Date Last Done Comments DEPRESSION SCREENING 1963 SMOKING Hx and SMOKELESS TOBACCO SCREENING 1964 HEPATITIS C SCREENING 1969 COLOGUARD 1996 COLONOSCOPY 1996 COLORECTAL CANCER SCREENING 1996 FIT TEST 1996 FOBT 1996 SIGMOIDOSCOPY 1996 VIRTUAL COLONOSCOPY 1996 RSV VACCINE (1 - Risk 60-74 years 1-dose series) 2011 ZOSTER VACCINES (2 of 2) 07/02/2019 05/07/2019 PNEUMOCOCCAL VACCINES (50+ years) (2 of 2 - PCV) 05/07/2020 05/07/2019, 06/21/2012 Adult Td,Tdap Booster 06/09/2022 06/09/2012 INFLUENZA VACCINE (#1) 2024 02/27/2020, 2010 COVID-19 VACCINE (2 - season) 2025 07/14/2020 MAMMOGRAM 10/10/2025 10/11/2023, 05/2 05/2023, 04/26/2019, Additional history exists LIPID PANEL 07/21/2028 07/22/2023 OSTEOPOROSIS SCREENING INITIAL (ONE-TIME) Completed 10/11/2023, 04/26/2019 HEPATITIS A VACCINES Aged Out No long er eligible based on patient's age to complete this topic HIB VACCINES Aged Out No longer eligi ble based on patient's age to complete this topic MENINGOCOCCAL VACCINES (ACWY) Aged Out No longer eligible based on patient's age to complete this topic MENINGOCOCCAL VACCINES (B) Aged Out N o longer eligible based on patient's age to complete this topic Medical Devices Not on file Procedures Procedure Name Priority Date/Time Associated Diagnosis Comments BI MAMMOGRAM SCREENING WITH TOMOSYNTHESIS WITH CAD (BILATERAL) Routine 10/11/2023 2:31 PM EDT Encounter for screening mammogram for malignant neoplasm of breast BD DXA AXIAL (SPINE) WITH HIP Routine 10/11/2023 2:20 PM EDT Osteopenia, unspecified location from Last 3 Months or Most Recently Relevant to Health Maintenance Results * BI MAMMOGRAM SCREENING WITH TOMOSYNTHESIS [...] notified of the results and recommendations. Tamia M Franklin FUEL EFFICIENT AIRCRAFT DESIGNER IMG MG EXAMS Final Result * BD [...] report originally createdby Michael Schulte. Tamia Reid [employer] DES[employer] IM BD BONE DENSITY DEXA Final Result from Last 3 Months or Most Recently Relevant to Health Maintenance Insurance MEDICARE PART A & B Member Subscriber Plan / Payer (Ef fective 2016-Present) Name:Dilma Aleman Member ID:[id number] Relation to Subscriber:Self Name:Dilma Aleman Subscriber ID:[id number] Payer ID:[id number] Group ID:Not on file Type:Medicare Address: [employer] [address] [place] [address] MEDICARE PART A & B MEDICARE PART A & B MEDICARE PART A & B Member Subscriber Plan / Payer (Ef fective 2016-Present) Name:Dilma Aleman Member ID:[id number] Relation to Subscriber:Self Name:Dilma Aleman Subscriber ID:[id number] Payer ID:[id number] Group ID:Not on file Type:Medicare Address: [employer] [address] [place] [address] MEDICARE PART A & B Member Subscriber Plan / Payer (Ef fective 2016-Present) Name:Dilma Aleman Member ID:[id number] Relation to Subscriber:Self Name:Dilma Aleman Subscriber ID:[id number] Payer ID:[id number] Group ID:Not on file Type:Medicare Address: [employer] [address] [place] [address] MEDICARE PART A & B Member Subscriber Plan / Payer (Ef fective 2016-Present) Name:Dilma Aleman Member ID:[id number] Relation to Subscriber:Self Name:Dilma Aleman Subscriber ID:[id number] Payer ID:[id number] Group ID:Not on file Type:Medicare Address: [employer] [address] [place] [address] MEDICARE PART A & B MEDICARE PART A & B Member Subscriber Plan / Payer (Ef fective 2016-Present) Name:Dilma Aleman Member ID:[id number] Relation to Subscriber:Self Name:Dilma Aleman Subscriber ID:[id number] Payer ID:[id number] Group ID:Not on file Type:Medicare Address: [employer]. [address] [place] [address] MEDICARE PART A & B Member Subscriber Plan / Payer (Ef fective 2016-Present) Name:Dilma Aleman Member ID:[id number] Relation to Subscriber:Self Name:Dilma Aleman Subscriber ID:[id number] Payer ID:[id number] Group ID:Not on file Type:Medicare Address: [employer] [address] [place] [address] Care Teams Turner Off Relationship Specialty Start Date End Date Suzan Block MD [address] [place] [address] [email or web address] PCP - General 03/10/17 Additional Source Comments The information contained in this document represents components of the legal health record. It is not the complete legal health record.[facility]
--- OUTSIDE RECORDS SUMMARY | 2025-02-07 11:48 | XMS_ITS | Encounter Summary ---
Author Organization [facility] Address [address] [place] [address] [place] [address] Phone Care Team Providers Care Fashion Supervisor Name Role Phone Suzan Block MD Primary Care Provider [phone] Encounter Details Date Type Department Care Team (Late Contact Info) Description 08/02/2023 Procedure Pass [facility], Ct Scan - [address] [address] Social History Tobacco Use Types Packs/Day Years [...] Info) Description 03/19/2025 8:00 AM EDT App[place]ment [facility] [address] [facility], 2nd Floor, [address] [place] [address] Yovany Fletcher MD [address] [place] [address] [email or web address] 03/19/2025 8:15 AM EDT Appointment [facility] [address] [facility], 2nd Floor, [address] [place] [address] Yovany Fletcher MD [address] [place] [address] [email or web address] 03/19/2025 9:20 AM EDT Office Visit [facility] [address] [facility], 2nd Floor, [address] [place] [address] Yovany Fletcher MD [address] [place] [address] [email or web address] documented as of this encounter Visit Diagnoses Not on filedocumented in this encounter Care Teams Fashion Supervisor Relationship Specialty Start Date End Date Suzan Block MD [address] [place] [address] [email or web address] PCP - General 03/10/17 documented as of this encounter Additional Source Comments The information contained in this document represents components of the legal health record. It is not the complete legal health record.[facility]
--- OUTSIDE RECORDS SUMMARY | 2025-02-07 11:48 | XMS_ITS | Encounter Summary ---
Author Organization [facility] Address [address] [place] [address] Phone Care Team Providers Care Folder Operator Name Role Phone Suzan Block MD Primary Care Provider Encounter Details Date Type Department Care Team (Late st Contact Info) Description 06/15/2022 Procedure Pass [facility], [address] [address] Social History Tobacco Use Types Packs/Day Years [...] Info) Description 03/19/2025 8:00 AM EDT Appointment [facility] [address] [facility], 2nd Floor, [address] [place] [address] Yovany Fletcher MD [address] [place] [address] [email or web address] 03/19/2025 8:15 AM EDT Appointment [facility] [address] [facility], 2[address] Floor, [address] [place] [address] Yovany Fletcher MD [address] [place] [address] [email or web address] 03/19/2025 9:20 AM EDT Office Visit [facility] [address] [facility], 2nd Floor, [address] [place] [address] Yovany Fletcher MD [address] [place] [address] [email or web address] documented as of this encounter Visit Diagnoses Not on filedocumented in this encounter Care Teams Folder Operator Relationship Specialty Start Date End Date Suzan Block MD [address] [place] [address] [email or web address] PCP - General 03/10/17 documented as of this encounter Additional Source Comments The information contained in this document represents components of the legal health record. It is not the complete legal health record.[facility]
--- OUTSIDE RECORDS SUMMARY | 2025-02-07 11:49 | XMS_ITS | Encounter Summary ---
Author Organization [employer] Address [address] [facility] 7t [place] [address] Care Team Providers Care Log Haul Chain Feeder Name Role Phone Tamia Reid OLIVER Primary Care Provider [phone] Tracey Lovett DO Primary Care Provider [phone] Olga Guillen Unavailable Unavailable Encounter Details Date Type Department Care Team (Late st Contact Info) Description 01/10/2024 Orders Only [place] [facility] [address] [place] [address] Janina Catherine FNP Social History Tobacco Use [...] the past 12 months, has t he [employer], gas, oil or water [employer] threatened to shut off services in your [...] Description 06/11/2025 10:10 AM EST Office Visit [place] [facility] [address] [place] [address] Madelaine To documented as of this encounter Visit Diagnoses Not on filedocumented in this encounter Additional Health Concerns Assessment Noted Time PHQ-9 Depression Total Score: 12 024 10:00 AM EDT documented as of this encounter Care Teams Log Haul Chain Feeder Relationship Specialty Start Date End Date Tamia Reid FNP [address] [place] [address] PCP - General Family Medicine 11/14/23 02/15/24 Tracey Lovett DO [address] [place] [address] PCP - General Family Medicine 02/16/24 Olga Guillen Health Navigator 02/24/24 documented as of this encounter
--- OUTSIDE RECORDS SUMMARY | 2025-02-07 11:49 | XMS_ITS | Clinical Summary ---
Author Organization 175 [facility] Address [address] [place] [address] Phone Care Team Providers Care Radiotelegraph Operator Servicer Name Role Phone Tamia Reid Primary Care Provider [phone] Allergies No known active allergies Encounters Date Type Department Care Team Description 11/14/2024 1:30 PM EDT Office Visit Orthopedic Surgery [facility] [address] [facility] [address] [place] [address] Tessa Vides PA Primary osteoarthritis of both first carpometacarpal joints (Primary Dx); Trigger middle finger of right hand from Last 3 Months Surgical History Surgery Date Site/Laterality Comments OTHER SURGICAL HISTORY PROCEDURE: DENIES PREVIOUS SURGERY Medical History Medical History Date Comments Depression DX:Depression Cervical stenosis (uterine cervix) DX:Cervical stenosis (uterine cervix) Family History Relation Name Status Comments Brother 1 Alive Brother 2 Alive Brother 3 Alive Daughter Alive Father Mother Son Alive Social History Tobacco Use Types Packs/Day Years Used Date Smoking Tobacco: Former Smokeless Tobacco: Never Tobacco Cessation:Counseling Given: Not Answered Alcohol Use Standard Drinks/Week Comments Yes 0 (1 standard drink = 0.6 oz pur e alcohol) Comments Unknown Sex and Gender Information Value Date Recorded Sex Assigned at Not on file Legal Sex Female 11:18 PM EST Gender Identity Not on file Sexual Orientation Not on file Obstetrics History Last Filed Vital Signs Vital Sign Reading Time Taken Comments Blood Pressure 120/72 09/05/2023 9:50 AM EDT Pulse 70 09/05/2023 9:50 AM EDT Temperature - - Respiratory Rate - - Oxygen Saturation - - Inhaled Oxygen Concentration - - Weight 68.9 kg (152 lb) 11/14/2024 1:37 PM EDT Height 165.1 cm (5' 5 ) 11/14/2024 1:37 PM EDT Body Mass Index 25.29 11/14/2024 1:37 PM EDT Plan of Treatment Health Maintenance Due Date Last Done Comments RSV Immunization Adult Patients (1 - Risk 60-74 years 1-dose series) 2011 Zoster Vaccines (2 of 2) 07/02/2019 05/07/2019, 06/24 Pneumococcal Vaccine: 50+ Years (2 of 2 - PCV) 05/07/2020 05/07/2019, 06/21/2012 Cholesterol Screening (Lipid Panel) 06/26/2023 Falls Risk Assessment 06/26/2023 Hepatitis C Screening 06/26/2023 Medicare Annual Wellness Visit 06/26/2023 Social Influencers of Health Screening 06/26/2023 Hepatitis B Vaccines (3 of 3 - 19+ 3-dose series) 01/25/2024 11/30/2023, 11/02/2023, 05/02/2002 Depression Screening 05/23/2024 COVID-19 Vaccine ( season) 2025 11/02/2023, 05/07/2021, 08/11/2020, Additional history exists Influenza Vaccine (#1) 2025 , 03/07/2022, 03/02/2021, Additional history exists Breast Cancer Screening 10/10/2025 10/11/2023 Colorectal Cancer Screening: Colonoscopy 11/03/2025 11/04/2015 DTaP,Tdap,and Td Vaccines (4 - Td or Tdap) 08/01/2033 08/02/2023, 06/09/2012, 01/21/1998 Osteoporosis Screening (Bone Density Screening) 10/10/2033 10/11/2023 Varicella Vaccines Aged Out 07/19/2001 No longer eligible based on patient's age to complete this topic Hepatitis A Vaccines Aged Out 01/16/2003, 05/07/20 02 No longer eligible based on patient's age to complete this topic Meningococcal ACWY Vaccine Aged Out 08/09/2013 N o longer eligible based on patient's age to complete this topic HIB Vaccines Aged Out No longer eligi ble based on patient's age to complete this topic HPV Vaccines Aged Out No longer eligi ble based on patient's age to complete this topic IPV Vaccines Aged Out No longer eligi ble based on patient's age to complete this topic MMR Vaccines Aged Out No longer eligi ble based on patient's age to complete this topic Meningococcal B Vaccine Aged Out No l onger eligible based on patient's age to complete this topic RSV Immunization Patients Under 20 months Aged Out No longer eligible based on patient's age to complete this topic Procedures Procedure Name Priority Date/Time Associated Diagnosis Comments RI INJECTION SINGLE TENDON SHEATH OR LIGAMENT APONEUROSIS Routine 11/14/2024 1:30 PM EDT Trigger middle finger of right hand RI ARTHROCENTESIS/ASPI RATION/INJECTION SMALL JOINT/BURSA WO U/S GUIDANCE Routine 11/14/2024 1:30 PM EDT Primary osteoarthritis of both first carpometacarpal joints from Last 3 Months Results * RI INJECTION SINGLE TENDON SHEATH OR LIGAMENT APONEUROSIS (11/14/2024 1:30 PM EDT) Narrative Tessa Vides PA - 11/14/2024 1:30 PM EDT EDWIGE Navarro 11/14/2024 2:30 PM Hand / UE Inj/Asp: R long A1 for trigger finger Indications: pain Details: 25 G needle, volar approach Medications: 40 mg triamcinolone acetonide 40 mg/mL; 0.5 mL lidocaine 1 % Informed Consent: Laterality: Right Relevant images/test results available and reviewed: yes Health status cleared: Yes Procedure/treatment, purpose, treatment alternatives, risks/potential complications and benefits explained: yes Risk/complications/benefits details: Risks of infection, thinning of the skin and temporary skin discoloration discussed. Discussed risks of temporary increased pain after injection and swelling and mild redness at injection site for couple days. Explained occasionally cortisone injection can cause facial flushing temporarily. Benefits pain management. For postop injection pain ice, Tylenol and/or NSAIDs if patient can take Patient questions answered: yes Patient agrees, verbalizes understanding, and wants to proceed: yes Consent given by: Patient Informed consent discussion completed by Physician/NBA with patient: Verbal Pre-procedure timeout performed: yes Tessa GIBBONS IN CLINIC/BEDSIDE ORDERABLES Final Result * RI ARTHROCENTESIS/ASPIRATION/INJECTION SMALL JOINT/BURSA WO U/S GUIDANCE (11/14/2024 1:30 PM EDT) Tessa Mixon PA - 11/14/2024 1:30 PM EDT EDWIGE Navarro 11/14/2024 2:30 PM Hand / UE Inj/Asp: R thumb CMC for osteoarthritis Indications: pain Details: 25 G needle, dorsal approach Medications: 40 mg triamcinolone acetonide 40 mg/mL; 0.5 mL lidocaine 1 % Informed Consent: Laterality: Right Relevant images/test results available and reviewed: yes Health status cleared: Yes Procedure/treatment, purpose, treatment alternatives, risks/potential complications and benefits explained: yes Risk/complications/benefits details: Risks of infection, thinning of the skin, skin discoloration discussed. Discussed the possibility of increased pain, mild redness and swelling at injection site. Discussed uncommon side effect of facial flushing after cortisone injection. Patient may use ice, Tylenol or ibuprofen if they can take it. Benefits pain management Patient questions answered: yes Patient agrees, verbalizes understanding, and wants to proceed: yes Consent given by: Patient Informed consent discussion completed by Physician/NBA with patient: Verbal Pre-procedure timeout performed: yes Tessa GIBBONS IN CLINIC/BEDSIDE ORDERABLES Final Result from Last 3 Months Insurance MEDICARE Care Teams Radiotelegraph Operator Servicer Relationship Specialty Start Date End Date Tamia Reid PA [address] [place] [address] PCP - General 09/05/23
--- OUTSIDE RECORDS SUMMARY | 2025-02-07 11:49 | XMS_ITS | Encounter Summary ---
Author Organization [facility] Address [address] [place] [address] [place] [phone] Phone Care Team Providers Care Steel Heater Name Role Phone Suzan Block MD Primary Care Provider [phone] Encounter Details Date Type Department Care Team (Late st Contact Info) Description 03/12/2017 Ancillary Orders [facility], [address] [address] Suzan Block MD [address] [place] [id number] [email or web address] Screening breast examination Social History Tobacco Use Types Packs/Day Years [...] Info) Description 03/19/2025 8:00 AM EDT Appointment [facility] Pulmonary and Critical Care Unit [address] [place], 2nd Floor, [address] [place] [address] Yovany Fletcher MD [address] [place] [id number] [email or web address] 03/19/2025 8:15 AM EDT Appointment [facility] Pulmonary and Critical Care Unit [address] [place], 2nd Floor, [address] [place] [address] Yovany Fletcher MD [address] [place] [address] [email or web address] 03/19/2025 9:20 AM EDT Office Visit [facility] [address] [facility], 2nd Floor, [address] [place] [address] Yovany Fletcher MD [address] [place] [address] [email or web address] documented as of this encounter Results * BI MAMMOGRAM SCREENING WITH TOMOSYNTHESIS WITH CAD (BILATERAL) (04/19/2017 12:46 PM EST) Anatomical Region Laterality Modality Breast Left, Breast Right, Breast Bilateral Bila teral Mammography 04/19/2017 12:5 2 PM EST Impressions 04/19/2017 12:54 PM EST Normal negative. Annual screening is recommended. Patient notified by letter. BI-RADS CATEGORY: 1 - Negative. DENSITY: The breast tissue is heterogeneously dense, an appearance which lowers the sensitivity of mammography. POS: [id number] Narrative 04/19/2017 12:54 PM EST Screening Mammogram, bilateral with utilization of computer aided detection and tomosynthesis as well as 2-D C view imaging. Comparison: Dating back to 2008 and the most recent prior examination dated thousand 15. Findings: No suspicious masses or suspicious clustered microcalcifications are present. No architectural distortion or significant asymmetry is present. Breasts are composed of heterogeneously dense tissue. Procedure Note Tara Shukla MD - 04/19/2017 Screening Mammogram, bilateral with utilization of computer aideddetection and tomosynthesis as well as 2-D C view imaging. Comparison: Dating back to 2008 and the most recent prior examinationdated thousand 15. Findings: No suspicious masses or suspicious clustered microcalcificationsare present. No architectural distortion or significant asymmetry ispresent. Breasts are composed of heterogeneously dense tissue. IMPRESSION: Normal negative. Annual screening is recommended. Patient notified by letter. BI-RADS CATEGORY: 1 - Negative. DENSITY: The breast tissue is heterogeneously dense, an appearance whichlowers the sensitivity of mammography. POS: [id number] Suzan Block MD IMG MG EXAMS Final Result documented in this encounter Visit Diagnoses Diagnosis Screening breast examination Other screening breast examination Screening breast examination Other screening breast examination documented in this encounter Care Teams Steel Heater Relationship Specialty Start Date End Date Suzan Block MD [address] [place] [address] [email or web address] PCP - General 03/10/17 documented as of this encounter Additional Source Comments The information contained in this document represents components of the legal health record. It is not the complete legal health record.[facility]
--- OUTSIDE RECORDS SUMMARY | 2025-02-07 11:49 | XMS_ITS | Encounter Summary ---
Author Organization [employer] Address [address] [facility] 7t [place] [address] Care Team Providers Care Bus Attendant Name Role Phone Tamia Reid Primary Care Provider [phone] Tracey Lovett DO Primary Care Provider [phone] Olga Guillen Unavailable Unavailable Encounter Details Date Type Department Care Team (Late st Contact Info) Description 12/19/2023 Orders Only [facility] [address] [place] [address] Tamia Reid CLOTH BLEACHING RANGE TENDER [address] [place] [address] Chronic cough; Shortness of breath Social History [...] Description 06/11/2025 10:10 AM EST Office Visit [facility] DENTAL [address] [place] [address] Madelaine To documented as of this encounter [...] documented as of this encounter Care Teams Bus Attendant Relationship Specialty Start Date End Date Tamia Reid FNP [address] [facility] [place] [address] PCP - General Family Medicine 11/14/23 02/15/24 Tracey Lovett DO [address] [place] [address] PCP - General Family Medicine 02/16/24 Olga Guillen Health Navigator 02/24/24 documented as of this encounter
--- OUTSIDE RECORDS SUMMARY | 2025-02-07 11:49 | XMS_ITS | Encounter Summary ---
Author Organization [employer] Address [address] [facility] 7t [place] [address] Care Team Providers Care Investigation Specialist Name Role Phone Tracey Lovett DO Primary Care Provider [phone] Olga Guillen Unavailable Unavailable Encounter Details Date Type Department Care Team (Late st Contact Info) Description 04/07/2024 Orders Only [facility] MEDICAL [address] [place] [address] Provider, MD Maria Fernanda Social History Tobacco [...] Description 06/11/2025 10:10 AM EST Office Visit [facility] DENTAL [address] [place] [address] Madelaine To documented as of this encounter [...] documented as of this encounter Care Teams Investigation Specialist Relationship Specialty Start Date End Date Tracey Lovett DO [address] [place] [address] PCP - General Family Medicine 02/16/24 Olga Guillen Health Navigator 02/24/24 documented as of this encounter
--- OUTSIDE RECORDS SUMMARY | 2025-02-07 11:49 | XMS_ITS | Encounter Summary ---
Author Organization [employer] Address [address] [place] [address] 7 [place] [address] Care Team Providers Care Milk Driver Name Role Phone Yuly [place]wood Unassigned Primary Care Provider Suzan Atkins MD Primary Care Provider [phone] Tamia Reid Primary Care Provider [phone] Tracey Lovett DO Primary Care Provider [phone] Olga Guillen Unavailable Unavailable Encounter Details Date [...] Description 06/11/2025 10:10 AM EST Office Visit [facility] D[facility] [address] [place] [address] Madelaine To documented as of this encounter Visit Diagnoses Not on filedocumented in this encounter Care Teams Milk Driver Relationship Specialty Start Date End Date PcpYuly Unassigned PCP - General Family Medicine 09/20/22 01/18/23 Suzan Block MD [address] [place] [address] PCP - General Internal Medicine 01/19/23 11/13/23 Tamia Reid FNP [address] [place] [address] PCP - General Family Medicine 11/14/23 02/15/24 Tracey Lovett DO [address] [place] [address] PCP - General Family Medicine 02/16/24 Olga Guillen Health Navigator 02/24/24 documented as of this encounter
--- OUTSIDE RECORDS SUMMARY | 2025-02-07 11:49 | XMS_ITS | Encounter Summary ---
Author Organization [employer] Address [address] [place] [address] 7 [place] [address] Care Team Providers Care Drafter Tool Design Name Role Phone Yuly [place]wood Unassigned Primary Care Provider Suzan Atkins MD Primary Care Provider [phone] Tamia Reid Primary Care Provider [phone] Tracey Lovett DO Primary Care Provider [phone] Olga Guillen Unavailable Unavailable Encounter Details Date [...] Description 06/11/2025 10:10 AM EST Office Visit [facility] D[facility] [address] [place] [address] Madelaine To documented as of this encounter Visit Diagnoses Not on filedocumented in this encounter Care Teams Drafter Tool Design Relationship Specialty Start Date End Date PcpYuly Unassigned PCP - General Family Medicine 09/20/22 01/18/23 Suzan Block MD [address] [place] [address] PCP - General Internal Medicine 01/19/23 11/13/23 Tamia Reid FNP [address] [place] [address] PCP - General Family Medicine 11/14/23 02/15/24 Tracey Lovett DO [address] [place] [address] PCP - General Family Medicine 02/16/24 Olga Guillen Health Navigator 02/24/24 documented as of this encounter
--- OUTSIDE RECORDS SUMMARY | 2025-02-07 11:49 | XMS_ITS | Encounter Summary ---
Author Organization [employer] Address [address] [place] [address] 7 [place] [address] Care Team Providers Care Systems Spec Name Role Phone Yuly Norwood Unassigned Primary Care Provider Suzan Atkins MD Primary Care Provider [phone] Tamia Reid Primary Care Provider [phone] Tracey Lovett DO Primary Care Provider [phone] Olga Guillen Unavailable Unavailable Encounter Details Date [...] Description 06/11/2025 10:10 AM EST Office Visit [facility] [address] [place] [address] Madelaine To documented as of this encounter Visit Diagnoses Not on filedocumented in this encounter Care Teams Systems Spec Relationship Specialty Start Date End Date PcpYuly Unassigned PCP - General Family Medicine 09/20/22 01/18/23 Suzan Block MD [address] [place] [address] PCP - General Internal Medicine 01/19/23 11/13/23 Tamia Reid FNP [address] [place] [address] PCP - General Family Medicine 11/14/23 02/15/24 Tracey Lovett DO [address] [place] [address] PCP - General Family Medicine 02/16/24 Olga Guillen Health Navigator 02/24/24 documented as of this encounter
--- OUTSIDE RECORDS SUMMARY | 2025-02-07 11:49 | XMS_ITS | Encounter Summary ---
Author Organization [employer] Address [address] [facility] 7t [place] [address] Care Team Providers Care Oil Heater Installer Name Role Phone Tracey Lovett DO Primary Care Provider [phone] Olga Guillen Unavailable Unavailable Encounter Details Date Type Department Care Team (Late st Contact Info) Description 07/02/2024 Orders Only [facility] [address] [place] [address] Tracey Lovett DO [address] [place] [address] Social History Tobacco Use Types Packs/Day Years Used Date Smoking Tobacco: Former Cigarettes 0.3 45 1 617 - 2011 Passive Smoke Exposure: Past Smokeless [...] t he electric, gas, oil or water [employer] threatened to shut off services in your [...] Description 06/11/2025 10:10 AM EST Office Visit [facility] D[facility] [address] [place] [address] Madelaine To documented as of this encounter [...] documented as of this encounter Care Teams Oil Heater Installer Relationship Specialty Start Date End Date Tracey Lovett DO [address] [place] [address] PCP - General Family Medicine 02/16/24 Olga Guillen Health Navigator 02/24/24 documented as of this encounter
--- OUTSIDE RECORDS SUMMARY | 2025-02-07 11:49 | XMS_ITS | Encounter Summary ---
Author Organization [facility] Address [address] [place] [address] [place] [address] Phone Care Team Providers Care Director Of Advertising Sales Name Role Phone Suzan Block MD Primary Care Provider [phone] Encounter Details Date Type Department Care Team (Late st Contact Info) Description 02/19/2019 Ancillary Orders Virtual Department [address] [place] [address] Suzan Block MD [address] [place] [address] [email or web address] Menopause; Breast screening Social History Tobacco Use Types Packs/Day Years [...] Info) Description 03/19/2025 8:00 AM EDT Appointment [facility] [address], [address], [address] [place] [address] Yovany Fletcher MD [address] [place] [address] [email or web address] 03/19/2025 8:15 AM EDT Appointment [facility] Pulmonary and Critical Care Unit [address], [address], [address] [place] [address] Yovany Fletcher MD [address] [place] [address] [email or web address] 03/19/2025 9:20 AM EDT Office Visit [facility] [address], [address], [address] [place] [address] Yovany Fletcher MD [address] [place] [address] [email or web address] documented as of this encounter Results * BD DXA AXIAL (SPINE) WITH HIP (04/26/2019 4:43 PM EST) Anatomical Region Laterality Modality Bone Density Bone Density 04/26/2019 7:22 PM EST Impressions 04/26/2019 7:24 PM EST Findings again consistent with osteopenia. Statistically significant bone mineral density gain in the lumbar spine and statistically significant bone mineral density loss in the left hip compared with 04/20/2013. POS -[id number] Narrative 04/26/2019 7:24 PM EST This is a 68-year-old postmenopausal female with a history of osteopenia. Compared with the previous study 04/20/2013. Evaluation of the lumbar spine and both hips is obtained and appears technically adequate. L1 and L2 excluded from analysis. The lumbar spine at L3 and L4 discloses a total bone mineral density of 0.839 g/cm2 with a T-score of -2.4. Z score -0.3. This is in the osteopenia range. This represents a statistically significant bone mineral density change of 7.7% compared with 04/20/2013 The right hip has a total bone mineral density of 0.760 g/cm2 with a T-score of -1.5. Z score -0.1. This is in the osteopenia range. No statistically significant change from 04/20/2013. The left hip has a total bone mineral density of 0.761 g/cm2 for a T-score of - 1.5. Z score -0.1. This is in the osteopenia range. This is a statistically significant bone mineral density change of -4.2% compared with 04/20/2013. Lateral instant vertebral imaging is not performed. Procedure Note Arnoldo Ivey MD - 04/26/2019 This is a 68-year-old postmenopausal female with a history ofosteopenia. Compared with the previous study 04/20/2013. Evaluation of the lumbar spine and both hips is obtained and appearstechnically adequate. L1 and L2 excluded from analysis. The lumbar spine at L3 and L4 discloses a total bone mineral density of0.839 g/cm2 with a T-score of -2.4. Z score -0.3. This is in theosteopenia range. This represents a statistically significant bone mineraldensity change of 7.7% compared with 04/20/2013 The right hip has a total bone mineral density of 0.760 g/cm2 with aT-score of - 1.5. Z score -0.1. This is in the osteopenia range. Nostatistically significant change from 04/20/2013. The left hip has a total bone mineral density of 0.761 g/cm2 for a T-scoreof - 1.5. Z score -0.1. This is in the osteopenia range. This is astatistically significant bone mineral density change of -4.2% comparedwith 04/20/2013. Lateral instant vertebral imaging is not performed. IMPRESSION: Findings again consistent with osteopenia. Statistically significant bonemineral density gain in the lumbar spine and statistically significantbone mineral density loss in the left hip compared with 04/20/2013. POS -[id number] us Suzan Block MD IM BD BONE DENSITY DEXA Final Result * BI MAMMOGRAM SCREENING WITH TOMOSYNTHESIS WITH CAD (BILATERAL) (04/26/2019 4:05 PM EST) Anatomical Region Laterality Modality Breast Left, Breast Right, Breast Bilateral Bila teral Mammography 04/27/2019 8:04 AM EST Impressions 04/27/2019 8:06 AM EST BILATERAL BREASTS: Negative, no evidence of malignancy. Normal interval follow- up is recommended in 12 months. Bi-RADS: BI-RADS CATEGORY: 1 - Negative. DENSITY: The breast tissue is heterogeneously dense, an appearance which lowers the sensitivity of mammography. POS - [email or web address] Narrative 04/27/2019 8:06 AM EST STUDY: Bilateral screening mammography with tomosynthesis and CAD TECHNIQUE: Bilateral full-field digital screening mammography is obtained and read in conjunction with computer-aided detection. Tomosynthesis as well as 2-D C view imaging were obtained. COMPARISON: Comparison made to multiple prior, most recent April 19, 2017, and most remote January 22, 2009. BREAST COMPOSITION: The breasts are heterogeneously dense, which may obscure small masses. BILATERAL BREASTS: No significant masses, calcifications or other abnormalities are seen. Procedure Note Eligio Luna MD - 04/27/2019 STUDY: Bilateral screening mammography with tomosynthesis and CAD TECHNIQUE: Bilateral full-field digital screening mammography is obtainedand read in conjunction with computer-aided detection. Tomosynthesis aswell as 2-D C view imaging were obtained. COMPARISON: Comparison made to multiple prior, most recent March, and most remote January 22, 2009. BREAST COMPOSITION: The breasts are heterogeneously dense, which mayobscure small masses. BILATERAL BREASTS: No significant masses, calcifications or otherabnormalities are seen. IMPRESSION: BILATERAL BREASTS: Negative, no evidence of malignancy. Normal intervalfollow-up is recommended in 12 months. Bi-RADS: BI-RADS CATEGORY: 1 - Negative. DENSITY: The breast tissue is heterogeneously dense, an appearance whichlowers the sensitivity of mammography. POS - CDHMAM2 Suzan Block MD IM MG EXAMS Final Result documented in this encounter Visit Diagnoses Diagnosis Menopause Symptomatic menopausal or female climacteric states Breast screening Breast screening, unspecified Breast screening Breast screening, unspecified Menopause Symptomatic menopausal or female climacteric states documented in this encounter Care Teams Director Of Advertising Sales Relationship Specialty Start Date End Date Suzan Block MD [address] [place] [address] [email or web address] PCP - General 03/10/17 documented as of this encounter Additional Source Comments The information contained in this document represents components of the legal health record. It is not the complete legal health record.[facility]
--- OUTSIDE RECORDS SUMMARY | 2025-02-07 11:49 | XMS_ITS | Encounter Summary ---
Author Organization [employer] Address [address] [facility] 7[address] [place] [address] Care Team Providers Care Bone Density Technician Name Role Phone Tracey Lovett DO Primary Care Provider [phone] Olga Guillen Unavailable Unavailable Encounter Details Date Type Department Care Team (Late st Contact Info) Description 04/10/2024 Orders Only [facility] [address] [place] [address] Tracey Lovett DO [address] [place] [address] Social History Tobacco Use Types Packs/Day Years Used Date Smoking Tobacco: Former Cigarettes 0.3 45 1 367 - 2011 Passive Smoke Exposure: Past Smokeless [...] t he electric, gas, oil or water [employer] threatened to shut off services in your [...] Description 06/11/2025 10:10 AM EST Office Visit [facility] [address] [place] [address] Madelaine To documented as of this encounter [...] documented as of this encounter Care Teams Bone Density Technician Relationship Specialty Start Date End Date Tracey Lovett DO [address] [place] [address] PCP - General Family Medicine 02/16/24 Olga Guillen Health Navigator 02/24/24 documented as of this encounter
--- OUTSIDE RECORDS SUMMARY | 2025-02-07 11:49 | XMS_ITS | Clinical Summary ---
Author Organization [employer] Address [address] [facility] 7[address] [place] [address] Care Team Providers Care Bar Examiner Name Role Phone Tracey Lovett DO Primary Care Provider [phone] Olga Gulilen Unavailable Unavailable Allergies Active Allergy Reactions Criticality [...] 1 Dose topically in the morning. Active doxycycline (Vibramycin) 100 MG capsuleIndicatio ns:Need for malaria prophylaxis TAKE 1 CAPSULE BY MOUTH ONCE PER DAY. TAKE WITH 8 OZS OF WATER START 2 DAYS PRIOR TO LEAVING AND CONTINUE 4 WEEKS AFTER RETURN TO PREVENT MALARIA. 60 capsule 4 Active meloxicam (Mobic) 15 MG tabletIndication s:Cervicogenic headache TAKE 1 TABLET BY MOUTH EVERY DAY IN THE MORNING 30 tablet 11 5 Active DULoxetine (Cymbalta) [address] capsuleIndicatio ns:Major depressive disorder, single episode, unspecified TAKE 1 CAPSULE BY MOUTH EVERY DAY 90 capsule 2 5 Active buPROPion SR (Wellbutrin SR) 150 MG 12 hr tablet TAKE 1 TABLET BY MOUTH TWICE A DAY 180 tablet 1 5 Active Active Problems Problem Noted Date Diagnosed [...] the GGO persist, are worse, or some collar turner operator to be fine fibrosis, reconsult/contact me through [employer] portal. With regards to lung cancer screening [...] age 66): Osteopenia, done 2019. Will order. SWIMMING COACH OR INSTRUCTOR: Outside SWIMMING COACH OR INSTRUCTOR: None Contraception: Menopause LMP: 1999. No vaginal [...] a deep breath. Per Pulm consult via [employer]: For your patient s chronic cough, consider followin. Pulmonary function [...] are consistent with ILD, concult/contact me through [employer] portal. 2. Trial of Nasal steroid daily [...] Do not want her to be on group exercise instructor PPI; go to [facility] or [facility] [...] breast 08/02/2023 Snoring 06/27/2023 Overview (06/27/2023): Tried [facility] - feedback from milad is that [...] Encounters Date Type Department Care Team Description 12/06/2024 11:00 AM EDT Office Visit [facility] [address] [place] [address] Avani Martinez Stage 3 grade B generalized periodontitis per AAP/EFP 2017 classification (Primary Dx); Accretions on teeth; Dental calculus; Stage 4 grade B localized periodontitis per AAP/EFP 2017 classification from Last 3 Months Immunizations Immunization Administration Dates Next Due Hep A, Adult [...] Sign Reading Time Taken Comments Blood Pressure 133/78 12/06/2024 11:47 AM EDT Pulse 52 12/06/2024 11:47 AM EDT Temperature 36.4 C (97.5 F) 03/06/2024 11:46 AM EDT Respiratory Rate 16 09/20/2023 8:54 [...] Description 06/11/2025 10:10 AM EST Office Visit [facility] [address] [place] [address] Madelaine To Health Maintenance Due Date Last Done Comments [...] 08/20/2023 021, 06/07/2017, 07/18/2012, Additional history exists HPV/Cotest 01/24/2024 Pap Smear 01/24/2024 01/23/2019 Hepatitis B Vaccines (3 of 3 - 19+ 3-dose series) 01/25/2024 11/30/2023, 11/02/2023, 05/02/2002 Depression Monitoring 04/01/2024 09/30/2023, 024 SDOH Screening 09/21/2024 09/22/2023 Dental X-Ray: Bitewings 10/06/2024 10/06/19 24, 09/06/2022, 08/31/2021, Additional history exists Dental Oral Exam 12/05/2024 06/06/2024, , 06/03/2023, Additional history exists COVID-19 Vaccine (2024- season) 2025 11/02/2023, 05/07/2021, 08/11/2020, Additional history exists Influenza Vaccine (#1) 2025 , 03/07/2022, 03/02/2021, Additional history exists Tobacco Screening 06/06/2025 06/06/2024 Dental Prophylaxis 06/09/2025 12/06/2024, 0 06/06/2024, 10/06/2023, Additional history exists Mammogram 10/10/2025 10/11/2023, 05/05/2023, 10/11/2023, Additional history exists Colonoscopy 11/03/2025 11/04/2015, 05/24/2013 Colorectal Cancer Screening 11/03/2025 DTaP/Tdap/Td Vaccines (3 - Td or Tdap) 08/01/2033 08/02/2023, 06/09/2012, 01/21/1998 Hepatitis A Vaccines Aged Out 01/16/2003, 05/07/20 02 No longer eligible based on patient's age to complete this topic Meningococcal Vaccine Aged Out 08/09/2013 No ki [...] Procedure Name Priority Date/Time Associated Diagnosis Comments PROPHYLAXIS - ADULT Routine 12/06/2024 1 1:00 AM EDT PERIODIC ORAL EVALUATION - ESTABLISHED PATIENT Routine 06/06/2024 9:20 AM EST BI MAMMOGRAM SCREENING BILATERAL Routine [...] Relevant to Health Maintenance Results * BI Mammogram Screening Bilateral (10/11/2023) Anatomical Region Laterality Modality Breast Bilateral Mammography Tamia Reid MANAGER DATA WAREHOUSING IMG BI PROCEDURES Final Result * Pap Smear (01/23/2019 12:00 AM EDT) Swab Historical Provider LAB CYTOLOGY ORDERABLES F inal Result * -Colonoscopy (11/04/2015 11:07 AM EDT) Anatomical Region Laterality Modality Endoscopy 11/04/2015 11:0 7 AM EDT Narrative 11/04/2015 11:07 AM EDT Refer to Fovea for result details Legacy Procedure: -Colonoscopy Procedure Note Provider, MD Maria Fernanda - 08/14/2022 Refer to Fovea for result details Legacy Procedure: -Colonoscopy Suzan Block MD ENDOSCOPY PROCEDURE ORDERABLES F inal Result from Last 3 Months or Most Recently Relevant to Health Maintenance Insurance MEDICARE Member Subscriber Plan / Payer (Ef fective 2022-Present) Name:Dilma Aleman Member ID:[id number] Relation to Subscriber:Self Name:Dilma Aleman Subscriber ID:[id number] Payer ID:STATE Group ID:Not on file Type:Medicare Address: [facility]. [address] [address] [facility] Care Teams Bar Examiner Relationship Specialty Start Date End Date Tracey Lovett DO [address] [place] [address] PCP - General Family Medicine 02/16/24 Olga Guillen Health Navigator 02/24/24
--- OUTSIDE RECORDS SUMMARY | 2025-02-07 11:49 | XMS_ITS | Encounter Summary ---
Author Organization [employer] Address [address] [place] [address] 7 [place] [address] Care Team Providers Care Promotions Executive Name Role Phone Yuly Norwood Unassigned Primary Care Provider Suzan Atkins MD Primary Care Provider [phone] Tamia Reid Primary Care Provider [phone] Tracey Lovett DO Primary Care Provider [phone] Olga Guillen Unavailable Unavailable Encounter Details Date [...] Description 06/11/2025 10:10 AM EST Office Visit [facility] [address] [place] [address] Madelaine To documented as of this encounter Visit Diagnoses Not on filedocumented in this encounter Care Teams Promotions Executive Relationship Specialty Start Date End Date PcpYuly Unassigned PCP - General Family Medicine 09/20/22 01/18/23 Suzan Block MD [address] [place] [address] PCP - General Internal Medicine 01/19/23 11/13/23 Tamia Reid FNP [address] [place] [address] PCP - General Family Medicine 11/14/23 02/15/24 Tracey Lovett DO [address] [place] [address] PCP - General Family Medicine 02/16/24 Olga Guillen Health Navigator 02/24/24 documented as of this encounter
--- OUTSIDE RECORDS SUMMARY | 2025-02-07 11:49 | XMS_ITS | Encounter Summary ---
Author Organization [employer] Address [address] [place] [address] 7 [place] [address] Care Team Providers Care Machine Cage Maker Name Role Phone Yuly Norwood Unassigned Primary Care Provider Suzan Atkins MD Primary Care Provider [phone] Tamia Reid Primary Care Provider [phone] Tracey Lovett DO Primary Care Provider [phone] Olga Guillen Unavailable Unavailable Encounter Details Date [...] Description 06/11/2025 10:10 AM EST Office Visit [place] [facility] [address] [place] [address] Madelaine To documented as of this encounter Visit Diagnoses Not on filedocumented in this encounter Care Teams Machine Cage Maker Relationship Specialty Start Date End Date PcpYuly Unassigned PCP - General Family Medicine 09/20/22 01/18/23 Suzan Block MD [address] [place] [address] PCP - General Internal Medicine 01/19/23 11/13/23 Tamia Reid FNP [address] [place] [address] PCP - General Family Medicine 11/14/23 02/15/24 Tracey Lovett DO [address] [place] [address] PCP - General Family Medicine 02/16/24 Olga Guillen Health Navigator 02/24/24 documented as of this encounter
== END 2025-02-07 10:46 | disposition home or self-care (01) ==
LOC: HO.HPS 10:00
PROVIDERS: PCP Family Medicine; Visit Provider Hospitalist
DX: J84.9 Interstitial pulmonary disease, unspecified (principal); G47.33 Obstructive sleep apnea (adult) (pediatric); R06.09 Other forms of dyspnea; J41.0 Simple chronic bronchitis
CPT/HCPCS: 99214; G2211

== ENCOUNTER → 2025-02-07 10:00 | Outpatient (BNVA) | payer MEDICARE, SELFPAY | PROVIDERS: PCP Family Medicine; Visit Provider Hospitalist | DX: J84.9 Interstitial pulmonary disease, unspecified (principal); G47.33 Obstructive sleep apnea (adult) (pediatric); Z99.89 Dependence on other enabling machines and devices; R06.09 Other forms of dyspnea; J41.0 Simple chronic bronchitis | CPT/HCPCS: 99212 ==

== ENCOUNTER 2025-02-28 07:23 | Outpatient (REF) | payer MEDICARE, SELFPAY ==
--- NOTE | 2025-02-28 08:06 | PFT_ITS ---
Flows: FEV1: 120 % of predicted at 2.71 L FVC: 123 % of predicted at 3.60 L FEV1/FVC: 75 % Bronchodilator response: Present in small to medium airways only Volumes: Total lung capacity: 101 % of predicted at 5.36 L Residual volume: 80 % of predicted at 1.74 L Slow vital capacity: 119 % of predicted at 3.62 L Expiratory reserve volume: 90 % of predicted at 0.67 L Diffusion capacity: Normal Impression: No obstructive or restrictive ventilatory defects. Bronchodilator response is present in small to medium airways only. MTDD
[2025-02-28 08:08] VITALS: PULSE 58; O2SAT 98
== END 2025-02-28 07:24 | disposition home or self-care (01) ==
LOC: HO.RESP 07:23
PROVIDERS: PCP Family Medicine; Visit Provider Hospitalist
DX: R06.09 Other forms of dyspnea (principal); J41.0 Simple chronic bronchitis; Z87.891 Personal history of nicotine dependence
CPT/HCPCS: 94010; 94640; 94727; 94729

== ENCOUNTER → 2025-02-28 08:06 | Outpatient (BNV) | payer MEDICARE, SELFPAY | PROVIDERS: PCP Family Medicine; Visit Provider Internal Medicine Pulmonary Disease | DX: R06.09 Other forms of dyspnea (principal) | CPT/HCPCS: 94060; 94727; 94729 ==